=== PATIENT | male | born 1945 | race Caucasian/White ===

== ENCOUNTER 2024-08-17 16:52 | Inpatient (IN) | payer MEDICARE, OTHER ==
[~2024-08-17] VITALS: Ht 160 cm; Wt 70.7 kg
--- NOTE | 2024-08-17 16:59 | ED.PDOC ---
Altered Mental Status HPI Comments Patient is a 78-year-old male that was brought in by EMS from home with a chief complaint of ALOC x 1 hour. Per EMS, caregiver called due to patient being confused. Patient normally A/Ox4 and ambulatory. Upon arrival to ER, patient is awake and answering questions. Patient currently states that he has nausea and diarrhea. Patient answering questions appropriately and A/Ox4. Ram catheter in place draining to gravity. Denies chest pain and/or SOB. Chief Complaint: ALOC Time Seen by MD: 16:55 Reviewed Notes: Medications, Allergies Information Source: Patient Mode of Arrival: EMS Severity: Moderate Timing: Minutes Duration: Since onset Prehospital treatment: None Quality: Confusion Past Medical History PAST MEDICAL HISTORY: Pt Confused Surgical History: Pt Confused Family History Family History: Pt Confused Social History Smoker: Pt Confused Alcohol: Pt Confused Drugs: Pt Confused Constitutional: denies: chills, diaphoresis, fatigue, fever, malaise, sweats, weakness, others EENTM: denies: blurred vision, double vision, ear bleeding, ear discharge, ear drainage, ear pain, ear ringing, eye pain, eye redness, hearing loss, mouth pain, mouth swelling, nasal discharge, nose bleeding, nose congestion, nose pain, photophobia, tearing, throat pain, throat swelling, voice changes, others Respiratory: denies: cough, hemoptysis, orthopnea, SOB at rest, shortness of breath, SOB with excertion, stridor, wheezing, others Cardiovascular: denies: chest pain, dizzy spells, diaphoresis, Dyspnea on exertion, edema, irregular heart beat, left arm pain, lightheadedness, palpitations, PND, syncope, others Gastrointestinal: reports: diarrhea, nausea; denies: abdomen distended, abdominal pain, blood streaked bowels, constipated, dysphagia, difficulty swallowing, hematemesis, melena, poor appetite, poor fluid intake, rectal bleeding, rectal pain, vomiting, others Genitourinary: denies: burning, dysuria, flank pain, frequency, hematuria, incontinence, penile discharge, penile sore, pain, testicle pain, testicle swelling, urgency, others Neurological: denies: dizziness, fainting, headache, left sided numbness, left sided weakness, numbness, paresthesia, pre-existing deficit, right sided numbness, right sided weakness, seizure, speech problems, tingling, tremors, weakness, others Musculoskeletal: denies: back pain, gout, joint pain, joint swelling, muscle pain, muscle stiffness, neck pain, others Integumetry: denies: bruises, change in color, change in hair/nails, dryness, laceration, lesions, lumps, rash, wounds, others Allergic/Immunocompromised: denies: Difficulty Healing, Frequent Infections, Hives, Itching, others Hematologic/Lymphatic: denies: anemia, blood clots, easy bleeding, easy brui sing, swollen glands, others Endocrine: denies: excessive hunger, excessive sweating, excessive thirst, ex cessive urination, flushing, intolerance to cold, intolerance to heat, unexplained weight gain, unexplained weight loss, others Psychiatric: denies: anxiety, bipolar disorder, depression, hopeless, panic disorder, schizophrenia, sleepless, suicidal, others Unable to Obtain due to: Altered Mental Status All Other Systems: Reviewed and Negative Physical Exam General Appearance: No Apparent Distress, Normal HEENT: Normal ENT Inspection, Pharynx Normal, TMs Normal Neck: Full Range of Motion, Non-Tender, Normal, Normal Inspection Respiratory: Chest Non-Tender, Lungs Clear, No Accessory Muscle Use, No Respiratory Distress, Normal Breath Sounds Cardiovascular: No Edema, No JVD, No Murmur, No Gallop, Normal Peripheral Pulses, Regular Rate/Rhythm Breast Exam: Deferred Gastrointestinal: No Organomegaly, Non Tender, No Pulsatile Mass, Normal Bowel Sounds, Soft Genitalia: Deferred Pelvic: Deferred Rectal: Deferred Extremities: No calf tenderness, Normal capillary refill, Normal inspection, Normal range of motion, Non-tender, No pedal edema Musculoskeletal : Apperance: Normal Neurologic: Alert, builder beam II-XII nml as Tested, No Motor Deficits, Normal Affect, Normal Mood, No Sensory Deficits Cerebellar Function: Normal Reflexes: Normal Skin: Dry, Normal Color, Warm Lymphatic: No Adenopathy Was a procedure done? Was a procedure done?: No Differential Diagnosis (ALOC) Differential Diagnosis: Dehydration, Hypoglycemia, Sepsis, Seizure, CVA, ETOH Intoxication X-Ray, Labs, Meds, VS Vital Signs Date Time Temp Pulse Resp B/P (MAP) Pulse Ox O2 Delivery O2 Flow Rate FiO2 08/17/24 16:56 98.7 103 22 159/85 (109) 96 08/17/24 16:52 105 Lab Test 08/17/24 17:30 Range/Units White Blood Count 14.4 H 4.4-10.8 10^3/uL Red Blood Count 4.93 4.5-5.90 10^6/uL Hemoglobin 15.0 13.5-17.5 g/dL Hematocrit 44.9 41.0-53.0 % Mean Corpuscular Volume 91.2 80.0-100.0 fL Mean Corpuscular Hemoglobin 30.5 28.0-32.0 pg Mean Corpuscular Hemoglobin Concent 33.5 32.0-36.0 g/dL Red Cell Distribution Width 14.7 H 11.8-14.3 % Platelet Count 281 140-450 10^3/uL Mean Platelet Volume 7.8 6.9-10.8 fL Neutrophils (%) (Auto) 85.6 H 37.0-80.0 % Lymphocytes (%) (Auto) 4.5 L 10.0-50.0 % Monocytes (%) (Auto) 9.7 0.0-12.0 % Eosinophils (%) (Auto) 0.2 0.0-7.0 % Basophils (%) (Auto) 0.0 0.0-2.0 % Neutrophils # (Auto) 12.3 H 1.6-8.6 10 ^3/uL Lymphocytes # (Auto) 0.6 0.4-5.4 10 ^3/uL Monocytes # (Auto) 1.4 H 0-1.3 10 ^3/uL Eosinophils # (Auto) 0 0-0.8 10 ^3/uL Basophils # (Auto) 0 0-0.2 10 ^3/uL Nucleated Red Blood Cells 0.0 % Sodium Level Pending Potassium Level Pending Chloride Level Pending Carbon Dioxide Level Pending Anion Gap Pending Blood Urea Nitrogen Pending Creatinine Pending Glomerular Filtration Rate Calc Pending BUN/Creatinine Ratio Pending Serum Glucose Pending Calcium Level Pending Troponin I High Sensitivity Pending Time of 1ST Reevaluation: 17:25 Reevaluation 1ST: Unchanged Patient Education/Counseling: Diagnosis, Treatment, Prognosis, Other (PATIENT ALTERED) Family Education/Counseling: No Family Present Departure 1 Departure Time of Disposition: 18:17 (Patient presents with altered mental status. I ordered and reviewed CBC BMP troponin which were all benign. I reviewed the CT scan and chest x-ray both appear benign. We will admit patient for further workup of altered mental status.) Impression: Primary Impression: Metabolic encephalopathy Additional Impression: Generalized weakness Disposition: 09 ADMITTED INPATIENT Admit to: Med Surg Condition: Serious Critical Care Note Critical Care Time?: Yes Critical care comment: Altered mental status Authorized and Performed by: Alex Díaz MD Total critical care time: Approximately 39 minutes Due to a high probability of clinically significant, life threatening deterioration, the patient required my highest level of preparedness to intervene emergently and I personally spent this critical care time directly and personally managing the patient. This critical care time included obtaining a history; examining the patient; pulse oximetry; ordering and review of studies; arranging urgent treatment with development of a management plan; evaluation of patient's response to treatment; frequent reassessment; and, discussions with other providers. This critical care time was performed to assess and manage the high probability of imminent, life-threatening deterioration that could result in multi-organ failure. It was exclusive of separately billable procedures and treating other patients and teaching time. Please see my other sections and the rest of the note for further information on patient assessment and treatment. Stability Stability form required: No I personally scribed for ALEX DÍAZ MD ([email or web address]) on 08/17/24 at 16:59. Electronically submitted by Gabriele Perez ([email or web address]). I personally scribed for ALEX DÍAZ MD ([email or web address]) on 08/17/24 at 17:05. Electronically submitted by Gabriele Perez ([email or web address]). ALEX DÍAZ MD Aug 17, 2024 16:59
--- NOTE | 2024-08-17 17:36 | DVH ---
CHEST RADIOGRAPH Indication: WEAKNESS Technique: Single frontal view of the chest was obtained Comparison: None FINDINGS: Lines and Tubes: None. Partially visualized suggested right sided approach ventriculoperitoneal shun t catheter. Lungs: No focal consolidation. Pleura: No effusion. No pneumothorax. Cardiomediastinal contours: Unremarkable. [id number] atherosclerotic calcification and uncoili ng of the aorta. Bones: No acute osseous abnormality. IMPRESSION: No acute cardiopulmonary disease.
--- NOTE | 2024-08-17 17:49 | DVH ---
Procedure: CT HEAD WITHOUT CONTRAST Study Date and Requested Time: 08/17/2024 05:13 PM History: WEAKNESS Comparison: None Dose: CTDI: 65.47 mGy DLP: 1289.89 mGycm Technique: Multiplanar images obtained through the brain without intravenous contrast. Findings: There is moderate diffuse brain atrophy with moderate chronic small-vessel ischemic changes. Moderate prominence of the ventricles with the right parietal lobe approach ventriculoperitoneal shun t catheter terminating with the tip projected over the superior medial right lateral ventricle. The v isualized Extracranial part of the ventriculoperitoneal shunt appears intact. No hemorrhages, masses, mass effect, midline shift, herniation or cytotoxic edema following a large v ascular territory. No intra-axial or extra-axial fluid collections. The basal cisterns are patent. Nonspecific partially empty sella. The cerebellar tonsils are in normal position. The cerebellum is u nremarkable. There is bilateral lens replacement. Otherwise, orbits and globes are unremarkable. Mild mucoperiost eal thickening of the ethmoid air cells. Otherwise, the paranasal sinuses and mastoids are clear. Th ere are no worrisome calvarial lesions. Impression: No evidence of acute intracranial abnormality. Moderate hydrocephalus with a right parietal approach ventriculoperitoneal shunt catheter terminating over the superior medial right lateral ventricle
[2024-08-17 18:08] LABS: Basophils # (auto) 0 10 ^3/uL (0-0.2); Eosinophils # (auto) 0 10 ^3/uL (0-0.8); Eosinophils % (auto) 0.2 % (0.0-7.0); Hematocrit 44.9 % (41.0-53.0); Lymphocytes # (auto) 0.6 10 ^3/uL (0.4-5.4); Lymphocytes % (auto) 4.5 % (10.0-50.0); Mean Corpuscular Hemoglobin 30.5 pg (28.0-32.0); Mean Corpuscular Hgb Conc. 33.5 g/dL (32.0-36.0); Mean Corpuscular Volume 91.2 fL (80.0-100.0); Monocytes # (auto) 1.4 10 ^3/uL (0-1.3); Monocytes % (auto) 9.7 % (0.0-12.0); Neutrophils # (auto) 12.3 10 ^3/uL (1.6-8.6); Neutrophils % (auto) 85.6 % (37.0-80.0); Platelet Count (auto) 281 10^3/uL (140-450); Red Blood Cells 4.93 10^6/uL (4.5-5.90); Red Cell Distribution Width 14.7 % (11.8-14.3); White Blood Cell 14.4 10^3/uL (4.4-10.8)
[2024-08-17 18:18] LABS: Chloride 106 mmol/L (98-107); Potassium 4.5 mmol/L (3.5-5.1); Sodium 141 mmol/L (136-145)
[2024-08-17 18:19] LABS: Anion Gap 8 (5-15); Carbon Dioxide 27 mmol/L (20-31)
[2024-08-17 18:24] LABS: BUN/Creatinine Ratio 20.6 (10.0-20.0); Blood Urea Nitrogen 22 mg/dL (9-23); Glucose 107 mg/dL (74-106)
[2024-08-17] MEDS: SODIUM CHLORIDE 0.9% 1,000 ML IV ONE (21:57)
[2024-08-17 22:00] VITALS: PULSE 83; RESP 21
[2024-08-17] MEDS: ONDANSETRON HCL 4 MG/2 ML VIAL IV ONE (22:04)
[2024-08-17] MEDS ORDERED: ACETAMINOPHEN 325 MG TAB PO PRN (23:00)
[2024-08-17] MEDS ORDERED: MORPHINE SULFATE INJ 2 MG/ml SYRG IV PRN ×2 (23:00)
[2024-08-17] MEDS ORDERED: NITROGLYCERIN 0.4 MG SL TAB SL PRN (23:00)
[2024-08-17] MEDS ORDERED: DOCUSATE SOD 100 MG CAP PO PRN (23:00)
[2024-08-17] MEDS ORDERED: ONDANSETRON HCL 4 MG/2 ML VIAL IV PRN (23:00)
--- NOTE | 2024-08-17 23:35 | DVHHPRES ---
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 As per documentation from the ER and also from the caregiver patient was acting different today afternoon with altered level of consciousness. Patient is to be alert and oriented x4 but today in the afternoon patient was very confused and also patient had bowel incontinence which is unusual for the patient. Patient reported left flank mild tenderness. Patient's caregiver and patient denied any fever, chest pain, shortness of breath, dysuria, acute joint pain or swelling. Patient has Ram's catheter for last 3-4 months. After coming to the ER patient was more conversant and awake and on conversation with the video game script writer patient was alert oriented x4 but patient could not give a details about what happened in the afternoon tender period of confusion. Lab workup revealed leukocytosis WBC 14.4 with neutrophilic leukocytosis 85.6. Urinalysis revealed leukocyte 2+, nitrite 2+, WBC 28, urine RBC 6, bacteria few. CT scan of the head reveals-Moderate hydrocephalus with a right parietal approach ventriculoperitoneal shunt catheter terminating over the superior medial right lateral ventricle. There is moderate diffuse brain atrophy with moderate chronic small-vessel ischemic changes. CXR no acute cardiopulmonary disease. 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 Patient reports feeling better now Cardiovascular- deny acute chest pain or shortness of breath or cough or palpitation Respiratory- denies cough or short of breath or wheezing Gastrointestinal- denies any rectal bleeding, nausea or vomiting Musculoskeletal-denies acute joint swelling or tenderness or redness Neurological- denies acute dysarthria, dysphagia, change in vision Psychiatry- denies depression or SI or HI Skin- denies acute rash or purpura Allergies: Coded Allergies: NO KNOWN ALLERGIES (Unverified , 08/17/24) Medications Current Medications Medications Dose Ordered Sig/Dominic Route Start Time Stop Time Status Last Admin Dose Admin Sodium Chloride 10 ml Q8HR IV 08/18/24 06:00 Ondansetron HCl 4 mg Q4HP PRN IV 08/17/24 23:00 Docusate Sodium 100 mg BIDPRN PRN PO 08/17/24 23:00 Enoxaparin Sodium 40 mg DAILY SC 08/18/24 10:00 Acetaminophen 650 mg Q6HP PRN PO 08/17/24 23:00 Morphine Sulfate 2 mg Q4HPRN PRN IV 08/17/24 23:00 Nitroglycerin 0.4 mg Q5MINP PRN SL 08/17/24 23:00 Morphine Sulfate 2 mg Q30M PRN IV 08/17/24 23:00 Exam Vital Signs Vital Signs Date Time Temp Pulse Resp B/P (MAP) Pulse Ox O2 Delivery O2 Flow Rate FiO2 08/17/24 23:00 89 14 144/81 (102) 94 08/17/24 22:00 98.8 98.8 08/17/24 22:00 Nasal Cannula* 3 32 Exam General examination- awake, alert, oriented, conversant HEENT- PEERLA, no acute nasal discharge Cardiovascular- S1-S2 audible, rate and rhythm regular, no murmur Respiratory- CTAB, no wheeze or rhonchi Gastrointestinal-nontender, bowel sound+. Nondistended Musculoskeletal-no acute joint swelling or tenderness or redness# Lower extremity- no leg edema Neurological- cranial nerves intact, no acute dysarthria or dysphagia Psychiatry- denies depression or SI or HI Skin- fragile skin Labs/Xrays Labs Test 08/17/24 19:27 08/17/24 17:30 Range/Units Troponin I High Sensitivity 4 </=54 ng/L White Blood Count 14.4 H 4.4-10.8 10^3/uL Red Blood Count 4.93 4.5-5.90 10^6/uL Hemoglobin 15.0 13.5-17.5 g/dL Hematocrit 44.9 41.0-53.0 % Mean Corpuscular Volume 91.2 80.0-100.0 fL Mean Corpuscular Hemoglobin 30.5 28.0-32.0 pg Mean Corpuscular Hemoglobin Concent 33.5 32.0-36.0 g/dL Red Cell Distribution Width 14.7 H 11.8-14.3 % Platelet Count 281 140-450 10^3/uL Mean Platelet Volume 7.8 6.9-10.8 fL Neutrophils (%) (Auto) 85.6 H 37.0-80.0 % Lymphocytes (%) (Auto) 4.5 L 10.0-50.0 % Monocytes (%) (Auto) 9.7 0.0-12.0 % Eosinophils (%) (Auto) 0.2 0.0-7.0 % Basophils (%) (Auto) 0.0 0.0-2.0 % Neutrophils # (Auto) 12.3 H 1.6-8.6 10 ^3/uL Lymphocytes # (Auto) 0.6 0.4-5.4 10 ^3/uL Monocytes # (Auto) 1.4 H 0-1.3 10 ^3/uL Eosinophils # (Auto) 0 0-0.8 10 ^3/uL Basophils # (Auto) 0 0-0.2 10 ^3/uL Nucleated Red Blood Cells 0.0 % Sodium Level 141 136-145 mmol/L Potassium Level 4.5 3.5-5.1 mmol/L Chloride Level 106 98-107 mmol/L Carbon Dioxide Level 27 20-31 mmol/L Anion Gap 8 5-15 Blood Urea Nitrogen 22 9-23 mg/dL Creatinine 1.07 0.700-1.30 mg/dL Glomerular Filtration Rate Calc 71 >90 mL/min BUN/Creatinine Ratio 20.6 H 10.0-20.0 Serum Glucose 107 H 74-106 mg/dL Calcium Level 10.0 8.7-10.4 mg/dL Assessment/Plan Assessment/Plan #Metabolic encephalopathy likely due to UTI -after arrival patient is more alert and oriented x4 -leukocytosis WBC 14.4 -uterine analysis-nitrite 2+, leukocyte esterase 2+, WBC 28, RBC 6, bacteria few -continue ceftriaxone 1 g IV daily -pending urine and blood CS -continue IV fluid as prescribed -monitor CBC, CMP -altered mental status #Sepsis likely due to UTI --leukocytosis WBC 14.4 -tachycardia- pulse 105>103 -patient with altered mental status-no improved --uterine analysis-nitrite 2+, leukocyte esterase 2+, WBC 28, RBC 6, bacteria few --continue ceftriaxone 1 g IV daily -pending urine and blood CS -continue IV fluid as prescribed # 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 Dove, nursing staff, patient Total time spent on patient evaluation, chart review, assessment and plan, discussion discussion >30 minutes Plan discussed with: Patient Plan discussed with: Patient, Other (RN, MEAL ROOM HAND) My Orders Orders - JO ANN GASTELUM RESIDENT Procedure Category Date Status Time Admit ADMIT 08/17/24 Transmitted 22:56 Code Status CODE 08/17/24 Transmitted 22:56 Sodium Chloride Lock PHA 08/18/24 In Process (Saline Lock Ns) 06:00 Ondansetron Hcl PHA 08/17/24 In Process (Zofran) 23:00 Docusate Sodium PHA 08/17/24 In Process Capsule (Colace 23:00 Enoxaparin Sodium PHA 08/18/24 In Process (Lovenox) 10:00 Fall Risk Precautions BECKY 08/17/[address] 22:56 Complete Blood Count LAB 08/18/24 Verified 04:00 Comprehensive LAB 08/18/24 Verified Metabolic Panel 04:00 Cardiac DIET 08/18/24 Transmitted Diet-2gna,Lofat,Lochol Breakfast Acetaminophen Tablet PHA 08/17/24 In Process (Tylenol Tablet) 23:00 Morphine Sulfate PHA 08/17/24 In Process Injection 23:00 Nitroglycerin PHA 08/17/24 In Process Sublingual (Ntrostat 23:00 Morphine Sulfate PHA 08/17/24 In Process Injection 23:00 Oxygen By Nasal RT 08/17/24 Transmitted Cannula 22:56 Stat Ekg For Chest BECKY 08/17/24 In Process Pain 22:56 Notify Of Changes BECKY 08/17/24 In Process From Base 22:[address] [facility] 08/17/24 In Process 24 Hours 22:[address] [facility] 08/17/24 In Process Protocol 22:[address] [facility] 08/17/24 In Process Every Shift 22:56 Date of Service: Aug 17, 2024 Billing Provider: JORGE DOVE MD Common Visit Codes: 83268-OGEKRTZ INP/OBS CARE (HIGH) Secondary Visit Codes: 03515-[id number] CARE PLAN 30 MINUTES JO ANN GASTELUM RESIDENT Aug 17, 2024 23:35 JORGE DOVE MD Aug 18, 2024 09:17
[2024-08-18 01:01] LABS: Urine Amorphous Crystal FEW /hpf (None Seen); Urine Bacteria FEW /hpf (None Seen); Urine Blood 2+ /uL (Negative); Urine Clarity Clear (Clear); Urine Color Light-Yellow (Yellow); Urine Protein, UAD Negative (Negative); Urine Specific Gravity 1.012 (1.001-1.035); Urine Urobilinogen Normal (Negative); Urine WBC 28 /hpf (0 - 3); Urine WBC Clumps PRESENT /hpf (None Seen); Urine pH 5.5 (5.0-9.0)
[2024-08-18] MEDS ORDERED: hydrALAZINE HCL 20 MG/ML VL IV PRN (02:15)
[2024-08-18] MEDS: cefTRIAXone 1GM/50ML D5W 50 ML IV ONE (02:23)
[2024-08-18] MEDS: SODIUM CHLORIDE 0.9% 1,000 ML IV SCH (02:38)
[2024-08-18] MEDS: SODIUM CHLOR 0.9% PF (SALINE LOCK) 10ML VIAL/SYR IV SCH (06:16)
[2024-08-18 07:20] LABS: Basophils # (auto) 0 10 ^3/uL (0-0.2); Basophils % (auto) 0.2 % (0.0-2.0); Eosinophils # (auto) 0.1 10 ^3/uL (0-0.8); Eosinophils % (auto) 1.4 % (0.0-7.0); Hematocrit 41.4 % (41.0-53.0); Hemoglobin 14.1 g/dL (13.5-17.5); Lymphocytes # (auto) 1.2 10 ^3/uL (0.4-5.4); Mean Corpuscular Hgb Conc. 34.1 g/dL (32.0-36.0); Mean Corpuscular Volume 91.1 fL (80.0-100.0); Monocytes # (auto) 1.6 10 ^3/uL (0-1.3); Monocytes % (auto) 16.8 % (0.0-12.0); Neutrophils # (auto) 6.6 10 ^3/uL (1.6-8.6); Neutrophils % (auto) 68.6 % (37.0-80.0); Platelet Count (auto) 240 10^3/uL (140-450); Red Blood Cells 4.55 10^6/uL (4.5-5.90); Red Cell Distribution Width 14.9 % (11.8-14.3); White Blood Cell 9.6 10^3/uL (4.4-10.8)
[2024-08-18 07:27] LABS: Alanine Aminotransferase 11 U/L (7-40); Albumin 3.8 g/dL (3.2-4.8); Alkaline Phosphatase 74 U/L (46-116); Anion Gap 7 (5-15); Aspartate Aminotransferase 16 U/L (13-40); BUN/Creatinine Ratio 13.1 (10.0-20.0); Bilirubin, Total 0.5 mg/dL (0.2-1.0); Blood Urea Nitrogen 13 mg/dL (9-23); Calcium 9.4 mg/dL (8.7-10.4); Carbon Dioxide 26 mmol/L (20-31); Chloride 108 mmol/L (98-107); Glucose 101 mg/dL (74-106); Potassium 4.2 mmol/L (3.5-5.1); Sodium 141 mmol/L (136-145); Total Protein 6.5 g/dL (5.7-8.2)
[2024-08-18 08:15] VITALS: PULSE 63; RESP 16; O2SAT 92
[2024-08-18 08:21] LABS: Triglycerides 97 mg/dL (< 150)
[2024-08-18 08:22] LABS: LDL Cholesterol 114 mg/dL (< 100)
[2024-08-18 08:23] LABS: HDL Cholesterol 44 mg/dL (40-59)
[2024-08-18 08:24] LABS: Cholesterol 182 mg/dL (< 200)
[2024-08-18 08:35] LABS: Folate (Folic Acid) 16.72 ng/mL (>5.38)
--- NOTE | 2024-08-18 08:53 | DVH ---
CAROTID ARTERIAL DOPPLER CLINICAL HISTORY: Presyncope TECHNIQUE: Doppler study of bilateral carotid/vertebral arteries were performed. Comparison: None FINDINGS: The bilateral common carotid, external and internal carotid arteries appear patent without hemodynami lary significant stenosis. There is no significant flow limiting plaque formation identified.The sp ectral wave forms and peak systolic velocities are within normal limits. Antegrade flow is present within the vertebral arteries with appropriate velocities and waveforms. Right ICA/CCA PSV ratio = 1.1. Left ICA/CCA PSV ratio = 1.0 . IMPRESSION: 1. No hemodynamically significant stenosis within the cervical carotid arteries. HS:Y
[2024-08-18] MEDS: amLODIPine BESYLATE 5 MG TAB PO SCH (13:01)
[2024-08-18] MEDS: ERGOCALCIFEROL 50,000 UNIT(1.25MG) CAP PO SCH (13:01)
[2024-08-18] MEDS: ENOXAPARIN SOD 40 MG/0.4 ML SYRINGE SC SCH (13:02)
[2024-08-18 14:12] LABS: COVID19 ANTIGEN SOFIA FIA NEGATIVE (NEGATIVE); Rapid Influenza A Negative (Negative); Rapid Influenza B Negative (Negative)
--- NOTE | 2024-08-18 14:25 | ECG ---
[facility] Test Date: 2024-08-17 Test Time: 16:51:25 Pat Name: RAVI CARDENAS Department: ER Room: 0248T Gender: M [employer] Insulator: IC : 1945 Requested By: ALEX DÍAZ Order Number: [id number] Reading MD: Donis Cartwright Measurements Intervals [place] Rate: 105 P: 48 NV: 191 QRS: 202 QRSD: 92 T: 3 QT: 318 QTc: 421 Interpretive Statements Sinus tachycardia Probable left atrial enlargement Abnormal R-wave progression, late transition Inferior infarct, old Baseline wander in lead(s) I,III,aVL,V2 Electronically Signed On 08-20-2024 17:28:05 PST by Donis Cartwright Please click the below link to view image of tracing.
--- NOTE | 2024-08-18 14:47 | DVHSR ---
APPROVED REPORT EXAM: Two-dimensional and M-mode echocardiogram with Doppler and color Doppler. Blood Pressure: 143/70 mmHg INDICATION Presyncope RISK FACTORS Height: 5' 7", Weight: 180 DIMENSIONS LVDd4.0 (3.8-5.7cm)LA (2D)4.2 (1.9-4.0cm)Aortic Root3.1 (2.0-3.7cm) LVDs2.9 (2.5-4.0cm)LA (MM) (1.9-4.0cm)Aortic Cusp Exc1.9 (1.5-2.0cm) EF (%) 55.0 (55-70%)Rt. Atrium3.9 (1.9-4.0cm)Asc. Aorta cm IVSd1.2 (0.7-1.1cm)RV (D) (1.8-2.4cm) PWd1.1 (0.7-1.1cm) Mitral Valve MitralMitral Stenosis E wave0.60m/sMV Mean GR.mmHg A wave0.90m/sMV Peak GR.mmHg E/A ratio0.72D MVAcm2 Aortic Valve Aortic ValveAortic Stenosis V10.80m/Charmaine Mean GR.5mmHg V21.30m/Charmaine Peak GR.8mmHg LVOT Diameter2.2 (1.8-2.4cm)Doppler AVA2.34cm2 Pulmonic Valve V20.50m/s Tricuspid Valve TR Velocity2.40m/s [id number] Conclusion Normal left ventricular size and dimension. Normal left ventricular systolic function estimated ejec tion fraction 55%. There is a grade 1 diastolic dysfunction. Normal right ventricular size and dimension. Normal right ventricular systolic function. Normal biatrial size and dimension. Normal aortic valve structure and function. Normal mitral valve structure and. Normal tricuspid valve structure function. The pulmonary valve is grossly normal. No pericardial effusion.
--- NOTE | 2024-08-18 16:00 | DVHPNRES ---
Progress Note Date Seen: Aug 18, 2024 Resident Creating Document: EUGENIO MCFADDEN RESIDENT Medical Necessity Reason Pt with a Central, PICC or Fol: Yes The following are medically ne: Ram Catheter Subjective Review of Systems RAVI CARDENAS is a 78 years old male with a PMH of prostate carcinoma, HTN, hydrocephalus with a TAX EVALUATOR shunt presented to the ED with the chief complaints of altered level of consciousness on the day of admission. Patient is poor historian but now he is alert, as per caregiver patient was acting different yesterday afternoon with altered level of consciousness. Patient is to be alert and oriented x4 but yesterday in the afternoon patient was very confused and also patient had bowel incontinence which is unusual for the patient. Patient reported left flank mild tenderness. Patient's caregiver and patient denied any fever, chest pain, shortness of breath, dysuria, acute joint pain or swelling. Patient has Ram's catheter for last 3-4 months. After coming to the ER patient was more conversant and awake and on conversation with the caption writer patient was alert oriented x4 but patient could not give a details about what happened in the afternoon. PMH: Personal carcinoma, HTN, hydrocephalus status post we patient Surgical history: TAX EVALUATOR shunt Family history: lives at home. Denies smoking, alcohol and other drug abuse Allergies: No known allergies Patient seen and examined at the bedside. Patient is alert and more awake, reported improvement in his condition. Head CT showed no acute intracranial abnormalities. Urinalysis was positive for UTI, ordered urine cultures, given ceftriaxone. Due to dizziness carotid Doppler was ordered, no hemodynamic significant stenosis. Patient reports: Feels better Objective vital signs Vital Sign Date Time Temp Pulse Resp B/P (MAP) Pulse Ox O2 Delivery O2 Flow Rate FiO2 08/18/24 13:01 135/72 08/18/24 12:00 64 08/18/24 09:00 13 91 08/18/24 08:15 Nasal Cannula* 2 28 08/17/24 22:00 98.8 98.8 Total Intake and Output 08/17/24 08/17/24 08/18/24 15:00 23:00 07:00 Intake Total 1000 ml 500 ml Balance 1000 ml 500 ml medications Current Medications Medications Dose Ordered Sig/Dominic Route Start Time Stop Time Status Last Admin Dose Admin Sodium Chloride 10 ml Q8HR IV 08/18/24 06:00 08/18/24 06:16 10 ML Ondansetron HCl 4 mg Q4HP PRN IV 08/17/24 23:00 Docusate Sodium 100 mg BIDPRN PRN PO 08/17/24 23:00 Enoxaparin Sodium 40 mg DAILY SC 08/18/24 10:00 08/18/24 13:02 40 MG Acetaminophen 650 mg Q6HP PRN PO 08/17/24 23:00 Morphine Sulfate 2 mg Q4HPRN PRN IV 08/17/24 23:00 Nitroglycerin 0.4 mg Q5MINP PRN SL 08/17/24 23:00 Morphine Sulfate 2 mg Q30M PRN IV 08/17/24 23:00 Ceftriaxone Sodium 50 ml @ 100 mls/hr DAILY@0200 IV 08/19/24 02:00 Sodium Chloride 1,000 ml @ 100 mls/hr Q10H IV 08/18/24 02:15 08/18/24 13:03 100 MLS/HR Hydralazine HCl 10 mg Q6HP PRN IV 08/18/24 02:15 Amlodipine Besylate 5 mg DAILY PO 08/18/24 10:00 08/18/24 13:01 5 MG Ergocalciferol 50,000 unit Q7D PO 08/18/24 09:30 08/18/24 13:01 50,000 UNIT Examination Pt is lying on bed General Appearance: Alert, Oriented X3, Cooperative, Not in acute distress HEENT: Atraumatic, Mucous membranes moist/pink Respiratory: Clear to auscultation, Normal air movement, No added sounds Cardiovascular: Regular rate, Normal S1, Normal S2, No murmurs Abdominal: Active bowel sounds, Soft, no distention, no tenderness Extremities: No edema, Normal pulses, No tenderness/swelling Skin: No Significant rash, except past surgical scars : Ram in place draining urine Neuro: Normal speech, sensorimotor deficits none Psych/Mental Status: Mental status NL, Mood NL Nurse was there as reedne during examination laboratory and microbiology Laboratory Tests 08/18/24 06:54 Test 08/18/24 06:54 Range/Units Serum Glucose 101 74-106 mg/dL Labs and/or images reviewed: Labs reviewed by me, Image(s) reviewed by me Problem List/Assessment/Plan Problem List/Assessment/Plan # Acute Metabolic encephalopathy likely due to UTI # ? Sepsis likely due to UTI # Acute complicated UTI # UTI likely due to indwelling Ram catheter - evident on urinalysis - ordered urine bacterial & blood culture - currently giving Rocephin - monitor lab - continue IV fluid as prescribed # TAX EVALUATOR shunt due to hydrocephalus -CT scan of the brain revealed--Moderate hydrocephalus with a right parietal approach ventriculoperitoneal shunt catheter terminating over the superior medial right lateral ventricle. There is moderate diffuse brain atrophy with moderate chronic small-vessel ischemic changes # carcinoma of the prostate -plan is to resume home medication # chronic retention of urine likely due to carcinoma of the prostate -on Ram's catheter # hypertension, uncontrolled -hydralazine 10 mg iv q.6h -monitor BP # Vit D deficiency - Repleting # B12 deficiency Repleting SCDs for now No GI be PPX Cardiac diet Reconciled home meds Goals of care discussed with the patient for more than 27 minutes: Full code status Case management discussed with the Dr Valles, patient and nurse Plan discussed with: Patient My Orders My Orders Orders - EUGENIO MCFADDEN RESIDENT Procedure Category Date Status Time Transfer Orders XFER 08/18/24 Transmitted 11:38 Discontinue Tele BECKY 08/18/24 In Process 11:38 Date of Service: Aug 18, 2024 Billing Provider: MEL VALLES MD Common Visit Codes: [id number] INP/OBS CARE(HIGH) Coding Comment Comment Attending Attestation I saw and evaluated the patient. I reviewed the residents note and agree with findings and plan as documented in the residents note except as documented below. HTN in elderly, will start amlodipine, avoid IV antihypertensive, will allow elevated BP and slowly decrease it with dominic PO meds only EUGENIO MCFADDEN RESIDENT Aug 18, 2024 16:00 MEL VALLES MD Aug 18, 2024 20:52
[2024-08-18] MEDS ORDERED: ERGOCALCIFEROL 50,000 UNIT(1.25MG) CAP PO SCH (16:15)
[2024-08-18] MEDS: CYANOCOBALAMIN (B-12) 1000 MCG/1 ML VIAL IM ONE (18:03)
[2024-08-18 20:00] VITALS: PULSE 61; RESP 18; O2SAT 94
[2024-08-18 23:00] VITALS: BP 169/72; PULSE 62; RESP 21; TEMP 98.1; O2SAT 95
[2024-08-19] VITALS (8 sets, daily range): BP systolic 134–144; BP diastolic 69–80; PULSE 72–78; RESP 16–20; TEMP 36.2; O2SAT 93–96
[2024-08-19] MEDS: cefTRIAXone 1GM/50ML D5W 50 ML IV SCH (01:52)
[2024-08-19] MEDS ORDERED: CEFP200T15 PO (14:19)
[2024-08-19] MEDS ORDERED: AML5T PO (14:19)
--- NOTE | 2024-08-19 16:58 | DVHDSRES ---
Discharge Summary Date of Admission Resident Creating Document: EUGENIO MCFADDEN RESIDENT Aug 17, 2024 at 22:58 Date of Discharge: Aug 19, 2024 Admitting Diagnosis ALOC Labs/Diagnostic Data: Laboratory Results Test 08/18/24 13:44 08/18/24 11:55 08/18/24 06:54 08/18/24 00:15 Influenza Type A Antigen Negative (Negative) Influenza Type B Antigen Negative (Negative) SARS-CoV-2 Antigen (Rapid) Negative (NEGATIVE) Troponin I High Sensitivity 5 ng/L (</=54) White Blood Count 9.6 10^3/uL (4.4-10.8) Red Blood Count 4.55 10^6/uL (4.5-5.90) Hemoglobin 14.1 g/dL (13.5-17.5) Hematocrit 41.4 % (41.0-53.0) Mean Corpuscular Volume 91.1 fL (80.0-100.0) Mean Corpuscular Hemoglobin 31.0 pg (28.0-32.0) Mean Corpuscular Hemoglobin Concent 34.1 g/dL (32.0-36.0) Red Cell Distribution Width 14.9 % (11.8-14.3) Platelet Count 240 10^3/uL (140-450) Mean Platelet Volume 7.6 fL (6.9-10.8) Neutrophils (%) (Auto) 68.6 % (37.0-80.0) Lymphocytes (%) (Auto) 13.0 % (10.0-50.0) Monocytes (%) (Auto) 16.8 % (0.0-12.0) Eosinophils (%) (Auto) 1.4 % (0.0-7.0) Basophils (%) (Auto) 0.2 % (0.0-2.0) Neutrophils # (Auto) 6.6 10 ^3/uL (1.6-8.6) Lymphocytes # (Auto) 1.2 10 ^3/uL (0.4-5.4) Monocytes # (Auto) 1.6 10 ^3/uL (0-1.3) Eosinophils # (Auto) 0.1 10 ^3/uL (0-0.8) Basophils # (Auto) 0 10 ^3/uL (0-0.2) Nucleated Red Blood Cells 0.0 % Sodium Level 141 mmol/L (136-145) Potassium Level 4.2 mmol/L (3.5-5.1) Chloride Level 108 mmol/L (98-107) Carbon Dioxide Level 26 mmol/L (20-31) Anion Gap 7 (5-15) Blood Urea Nitrogen 13 mg/dL (9-23) Creatinine 0.99 mg/dL (0.700-1.30) Glomerular Filtration Rate Calc 78 mL/min (>90) BUN/Creatinine Ratio 13.1 (10.0-20.0) Serum Glucose 101 mg/dL (74-106) Hemoglobin A1c 5.8 % A1C (<5.7) Calcium Level 9.4 mg/dL (8.7-10.4) Magnesium Level 2.0 mg/dL (1.6-2.6) Total Bilirubin 0.5 mg/dL (0.2-1.0) Aspartate Amino Transferase (AST) 16 U/L (13-40) Alanine Aminotransferase (ALT) 11 U/L (7-40) Alkaline Phosphatase 74 U/L (46-116) B-Type Natriuretic Peptide 21.07 pg/mL (0-100) Total Protein 6.5 g/dL (5.7-8.2) Albumin 3.8 g/dL (3.2-4.8) Triglycerides Level 97 mg/dL (< 150) Cholesterol Level 182 mg/dL (< 200) LDL Cholesterol 114 mg/dL (< 100) HDL Cholesterol 44 mg/dL (40-59) Vitamin B12 Level 332 pg/mL (211-911) Vitamin D 25-Hydroxy 15.6 ng/mL (30.0-100) Folic Acid 16.72 ng/mL (>5.38) Thyroid Stimulating Hormone (TSH) 0.37 uIU/mL (0.55-4.78) Urine Color Light-yellow (Yellow) Urine Clarity Clear (Clear) Urine pH 5.5 (5.0-9.0) Urine Specific Dalton 1.012 (1.001-1.035) Urine Protein Negative (Negative) Urine Ketones Negative (Negative) Urine Blood 2+ /uL (Negative) Urine Nitrite 2+ (Negative) Urine Bilirubin Negative (Negative) Urine Urobilinogen Normal mg/dL (Negative) Urine Leukocyte Esterase 2+ /uL (Negative) Urine RBC 6 /hpf (0 - 3) Urine WBC 28 /hpf (0 - 3) Urine WBC Clumps Present /hpf (None Seen) Urine Squamous Epithelial Cells None seen /hpf (<5) Urine Amorphous Crystals Few /hpf (None Seen) Urine Bacteria Few /hpf (None Seen) Urine Glucose Normal mg/dL (Normal) Other Laboratory Tests 08/18/24 06:54 Brief Hx & Hospital Course: RAVI CARDENAS is a 78 years old male with a PMH of prostate carcinoma, HTN, hydrocephalus with a FLOTATION TENDER shunt presented to the ED with the chief complaints of altered level of consciousness on the day of admission. Patient is poor historian but now he is alert, as per caregiver patient was acting different yesterday afternoon with altered level of consciousness. Patient is to be alert and oriented x4 but yesterday in the afternoon patient was very confused and also patient had bowel incontinence which is unusual for the patient. Patient reported left flank mild tenderness. Patient required admission for ALOC and possible sepsis due to UTI, Head CT showed no acute intracranial changes. Urinalysis was positive for UTI, ordered urine cultures, given ceftriaxone and IVF. Due to dizziness carotid Doppler was ordered, no hemodynamic significant stenosis. Changed leone. Patient condition was improved, alert and oriented x4, hemodynamically stable stable, in condition to be discharge home with optimal treatment. Patient was advised about diet and exercise and to followuo with PCP Pt is lying on bed General Appearance: Alert, Oriented X3, Cooperative, Not in acute distress HEENT: Atraumatic, Mucous membranes moist/pink Respiratory: Clear to auscultation, Normal air movement, No added sounds Cardiovascular: Regular rate, Normal S1, Normal S2, No murmurs Abdominal: Active bowel sounds, Soft, no distention, no tenderness Extremities: No edema, Normal pulses, No tenderness/swelling Skin: No Significant rash, except past surgical scars : Leone in place draining urine Neuro: Normal speech, sensorimotor deficits none Psych/Mental Status: Mental status NL, Mood NL Nurse was there as soniaerone during examination Operations or Procedures Carotid Doppler:IMPRESSION: 1. No hemodynamically significant stenosis within the cervical carotid arteries. CT HEAD WITHOUT CONTRAST Impression: No evidence of acute intracranial abnormality. Moderate hydrocephalus with a right parietal approach ventriculoperitoneal shunt catheter terminating over the superior medial right lateral ventricle Echocardiogram Normal left ventricular size and dimension. Normal left ventricular systolic function estimated ejection fraction 55%. There is a grade 1 diastolic dysfunction. Normal right ventricular size and dimension. Normal right ventricular systolic function. Condition at Discharge: Stable Final Diagnosis/Problems List # Acute Metabolic encephalopathy likely due to UTI # ? Sepsis likely due to UTI # Acute complicated UTI # UTI likely due to indwelling Leone catheter # Moderate hydrocephalus with S/P FLOTATION TENDER shunt # carcinoma of the prostate # chronic retention of urine likely due to carcinoma of the prostate # hypertension, uncontrolled # Vit D deficiency # B12 deficiency Discharge Disposition: Home Discharge Instruct/Medications Diet: Consistent carbohydrate, Cardiac 2g Na,low cholest Activity: No Restrictions, As Tolerated Follow Up/Referral: PCP Medications: Per EMR Discharge Statement: "Patient was advised to return to the ER or call 911 if any headaches, dizziness, shortness of breath, chest pain, abdominal pain, bleeding, fevers, or worsening of medical condition. Patient was counseled about treatment plan, medications, possible side effects, patientverbalized understanding. All questions were answered to the best of my ability. This discharge took greater then 30 minutes in planning, reviewing documentation, counseling the patient, and discussing with other team members." ASSESSMENT ASSESSMENT Assessment Acute metabolic encephalopathy likely due to UTI Complicated UTI Date of Service: Aug 19, 2024 Billing Provider: MEL COLLINS MD Common Visit Codes: 13631-LYK/[id number] DISCH DAY >30min Coding Comment Comment Attending Attestation I saw and evaluated the patient. I reviewed the residents note and agree with findings and plan as documented in the residents note except as documented below. EUGENIO MCFADDEN RESIDENT Aug 19, 2024 16:58 MEL COLLINS MD Aug 19, 2024 21:37
== END 2024-08-19 14:40 | disposition home health service (06) | DRG 698 ==
LOC: EDBD 16:52 → ER 16:52 → TELE 22:58 → TELE-EAST 08-18 22:47
PROVIDERS: ADMIT Student in an Organized Health Care Education/Training Program; ATTEND Student in an Organized Health Care Education/Training Program
DX: T83.511A Infection and inflammatory reaction due to indwelling urethral catheter, initial encounter (principal); A41.9 Sepsis, unspecified organism; G93.41 Metabolic encephalopathy; G91.9 Hydrocephalus, unspecified; N39.0 Urinary tract infection, site not specified; Z20.822 Contact with and (suspected) exposure to COVID-19; I10 Essential (primary) hypertension; R33.9 Retention of urine, unspecified; E55.9 Vitamin D deficiency, unspecified; E53.8 Deficiency of other specified B group vitamins; Z85.46 Personal history of malignant neoplasm of prostate; Z98.2 Presence of cerebrospinal fluid drainage device
CPT/HCPCS: 36415; 70450; 71045; 80048; 80053; 80061; 81001; 82306; 82607; 82746; 83036; 83735; 83880; 84443; 84484; 85025; 87040; 87086; 87088; 87186; 87426; 87804; 93005; 93306; 93886; 97110; 97116; 97163; 97530; 99291; G0378; J2405

== ENCOUNTER → 2024-10-05 | Outpatient (CLI) | payer MEDICARE ==
[~2024-10-05] MED LIST: AML5T PO; CEFP200T15 PO
== END | disposition home or self-care (01) ==
LOC: LAB 15:48
PROVIDERS: ATTEND Internal Medicine
DX: N40.0 Benign prostatic hyperplasia without lower urinary tract symptoms (principal)
CPT/HCPCS: 84153

== ENCOUNTER → 2024-10-13 | Outpatient (CLI) | payer MEDICARE | END | disposition home or self-care (01) | LOC: LAB 13:52 | PROVIDERS: ATTEND Internal Medicine | DX: T83.511A Infection and inflammatory reaction due to indwelling urethral catheter, initial encounter (principal); Y84.8 Other medical procedures as the cause of abnormal reaction of the patient, or of later complication, without mention of misadventure at the time of the procedure; Y92.89 Other specified places as the place of occurrence of the external cause | CPT/HCPCS: 87086; 87088; 87186 ==

== ENCOUNTER 2024-10-19 00:37 | Inpatient (IN) | payer MEDICARE ==
[2024-10-19] VITALS (10 sets, daily range): BP systolic 108–148; BP diastolic 56–81; PULSE 82–106; RESP 15–22; TEMP 97.7–98.1; O2SAT 92–97
[~2024-10-19] VITALS: Ht 162.6 cm; Wt 68.2 kg
--- NOTE | 2024-10-19 00:53 | ED.PDOC ---
Altered Mental Status HPI Comments HPI: Poor Historian. Caregiver saw the patient today and was concerned that he is somewhat altered x2 which is not his baseline. She said that this happens when he usually gets a UTI. He is currently on antibiotics for UTI. Same thing happened few weeks ago as well. Patient denies any pain anywhere in his body. He is in no distress. Denies any specific symptoms. Patient Ram catheter was replaced two weeks ago. Patient denies any fall or trauma or injury. Patient received Zofran prior to arrival. Patient received DuoNeb prior to arrival. Vitals on scene: blood pressure of 158/84, heart rate of 64, respiratory rate of 22, SpO2 88%RA, temperature of 98.4F Vitals upon arrival to ED: blood pressure of 172/84, heart rate of 95, respiratory rate of 20, SpO2 96%RA, temperature of 98.4F Upon reassessment with the patient went to bed, the nurse notified me that his pulse ox is in the mid 80s and required supplemental oxygen. 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 EARS: Denies acute: tinnitus, hearing loss, ear discharge, ear pain, THROAT: Denies acute: sore throat, swelling, difficulty swallowing , pain with swallowing, change in voice. NECK: Denies acute: neck pain, neck swelling, stiff neck. HEART: Denies acute : chest pain, palpitations, LUNGS: Denies acute: SOB, wheezing, cough, hemoptysis ABDOMEN: Denies acute: abdominal pain, Nausea, Vomiting, diarrhea, melena , hematemesis, hematochezia SKIN: Denies acute: rash, redness, lesions, itchiness. EXTREMITIES: Denies acute: calf pain, numbness, tingling, weakness, denies pain in extremity. Denies acute: Low back pain. Neuro: Denies acute: focal neurological deficit, motor or sensory focal neurological deficit, tremors, seizure like activity, confusion, dizziness, loss of bowel or bladder function, cauda equina like symptoms. : Denies acute: dysuria, hematuria, flank pain, increase in urinary frequency. PSYCH: Denies acute: hallucination, suicidal ideation, homicidal ideation. PHYSICAL EXAM: General: no acute distress, awake and alert. Head: normocephalic, atraumatic. Neck: supple, trachea is midline, no swelling. Throat: Normal phonation. Eyes:, no erythema, no purulent discharge, no proptosis, no icterus. Heart: regular rate, regular rhythm, no significant murmur appreciated. Lungs: no apparent respiratory distress, Able to speak in full sentences. No wheezing, no rhonchi, no crackles. No stridors Clear to auscultation bilaterally. Abdomen: non tender to palpation, non distended, soft, no guarding, no rebound, + bowel sounds. Indwelling Ram catheter. Neuro: Awake, Alert, oriented to name, self, situation, follows commands GCS=15. Speech is normal. Skin: no petechia, no purpura, no cyanosis, slightly-pale, not jaundice. Lower extremities: --no - Pitting edema no deformity, no focal swelling, no calf TTP. Makes eye contact. moves all four extremities. Face: no apparent facial droop. Time Seen by MD: 00:45 Reviewed Notes: Nurses Notes, Cage Maker Notes, Medications, Allergies Allergies: Coded Allergies: NO KNOWN ALLERGIES (Unverified , 08/17/24) Home Meds Active Scripts Amlodipine Besylate (NORVASC TABLET) 5 Mg Tb, 5 MG PO DAILY for 30 Days, #30 TAB Prov:MEL COLLINS MD 08/19/24 Reported Medications Fesoterodine Fumarate (Toviaz) 4 Mg Tab, 4 MG PO DAILY, TAB 10/19/24 Benazepril HCl (Benazepril Hydrochloride) 40 Mg Tab, 40 MG PO DAILY, TAB 10/19/24 Pantoprazole Sodium Sesquihydr (Protonix) 40 Mg Tab, 40 MG PO QAM, #30 TAB 10/19/24 Mirtazapine (REMERON) 30 Mg Tab, 15 MG PO DAILY, TAB 10/19/24 Trazodone Hcl (Trazodone Hcl) 50 Mg Tab, 50 MG PO HS, TAB 10/19/24 Tamsulosin Hcl (Tamsulosin Hcl) 0.4 Mg Cap, 0.4 MG PO DAILY, CAP 10/19/24 Information Source: Patient, Emergency Med Personnel Mode of Arrival: EMS Past Medical History PAST MEDICAL HISTORY: Cancer (carcinoma of the prostate), HTN, UTI'S Past Medical History (Other): acute metabolic encephalopathy, hydrocephalus with S/P 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 Was a procedure done?: No Differential Diagnosis (ALOC) Differential Diagnosis: Other (DDX include CVA, TGA, cerebellar ischemia/infarct, carotid stenosis, Intracranial mass/infection/bleed, encephalopathy, electrolyte abnormality, thyroid disease, hydrocephalus, hypoglycemia, drug toxicity, cardiac arrhythmia, seizure, infection in the elderly, Hyperammonemia., kidney failure., sepsis.) X-Ray, Labs, Meds, VS Vital Signs Date Time Temp Pulse Resp B/P (MAP) Pulse Ox O2 Delivery O2 Flow Rate FiO2 10/19/24 04:00 101 10/19/24 04:00 101 15 117/65 (82) 93 10/19/24 01:53 18 96 Simple Mask* 6 50 10/19/24 01:44 94 10/19/24 01:18 98 17 94 Nasal Cannula* 6 44 10/19/24 01:18 98.5 98 17 155/72 (99) 94 98.5 10/19/24 01:00 Nasal Cannula* 6 44 10/19/24 00:52 95 10/19/24 00:47 95 10/19/24 00:47 98.4 98 20 172/84 (113) 96 Lab Test 10/19/24 04:26 10/19/24 02:37 10/19/24 02:20 10/19/24 01:41 Range/Units Troponin I High Sensitivity 6 5 </=54 ng/L Blood Gas Specimen Type Arterial Blood Gas Sample Site Left radial Blood Gas Patient Temperature 37.0 Arterial Blood Date Drawn [id number] Arterial Blood pH 7.394 7.350-7.450 Arterial Blood Partial Pressure CO2 32.3 L 35.0-48.0 mmHg Arterial Blood Partial Pressure O2 76.7 L 83.0-108.0 mmHg Arterial Blood HCO3 19.3 L 21.0-28.0 mmol/L Arterial Blood Oxygen Saturation 94.9 94.0-98.0 % Arterial Blood Base Excess -4.5 L -2.0-3.0 mmol/L Arterial Blood Oxyhemoglobin 93.6 L 94.0-98.0 % Arterial Blood Carboxyhemoglobin 0.8 0.5-1.5 % Arterial Blood Methemoglobin 0.6 0.0-1.5 % Deshawn Test Yes Blood Gas Total Hemoglobin 15.10 13.5-17.5 g/dL Blood Gas Liter Flow 4.00 Blood Gas Modality Nasal cannula FiO2 % 36.0 Influenza Type A Antigen Negative Negative Influenza Type B Antigen Negative Negative SARS-CoV-2 Antigen (Rapid) Negative NEGATIVE Test 10/19/24 01:30 10/19/24 01:23 10/19/24 01:08 Range/Units POC Glucose 89 70-106 mg/dl White Blood Count 11.8 H 4.4-10.8 10^3/uL Red Blood Count 5.22 4.5-5.90 10^6/uL Hemoglobin 15.8 13.5-17.5 g/dL Hematocrit 47.7 41.0-53.0 % Mean Corpuscular Volume 91.4 80.0-100.0 fL Mean Corpuscular Hemoglobin 30.2 28.0-32.0 pg Mean Corpuscular Hemoglobin Concent 33.1 32.0-36.0 g/dL Red Cell Distribution Width 14.6 H 11.8-14.3 % Platelet Count 269 140-450 10^3/uL Mean Platelet Volume 7.7 6.9-10.8 fL Neutrophils (%) (Auto) 73.0 37.0-80.0 % Lymphocytes (%) (Auto) 15.8 10.0-50.0 % Monocytes (%) (Auto) 9.7 0.0-12.0 % Eosinophils (%) (Auto) 1.2 0.0-7.0 % Basophils (%) (Auto) 0.3 0.0-2.0 % Neutrophils # (Auto) 8.6 1.6-8.6 10 ^3/uL Lymphocytes # (Auto) 1.9 0.4-5.4 10 ^3/uL Monocytes # (Auto) 1.1 0-1.3 10 ^3/uL Eosinophils # (Auto) 0.1 0-0.8 10 ^3/uL Basophils # (Auto) 0 0-0.2 10 ^3/uL Nucleated Red Blood Cells 0.0 % Sodium Level 141 136-145 mmol/L Potassium Level 4.3 3.5-5.1 mmol/L Chloride Level 107 98-107 mmol/L Carbon Dioxide Level 26 20-31 mmol/L Anion Gap 8 5-15 Blood Urea Nitrogen 13 9-23 mg/dL Creatinine 1.08 0.700-1.30 mg/dL Glomerular Filtration Rate Calc 70 >90 mL/min BUN/Creatinine Ratio 12.0 10.0-20.0 Serum Glucose 102 74-106 mg/dL Lactic Acid Level 1.1 0.4-2.0 mmol/L Calcium Level 10.0 8.7-10.4 mg/dL Total Bilirubin 0.4 0.2-1.0 mg/dL Aspartate Amino Transferase (AST) 24 13-40 U/L Alanine Aminotransferase (ALT) 14 7-40 U/L Alkaline Phosphatase 88 46-116 U/L Troponin I High Sensitivity 6 </=54 ng/L B-Type Natriuretic Peptide 15.44 0-100 pg/mL Total Protein 7.0 5.7-8.2 g/dL Albumin 4.1 3.2-4.8 g/dL Urine Color Light-yellow Yellow Urine Clarity Clear Clear Urine pH 6.5 5.0-9.0 Urine Specific [place] 1.010 1.001-1.035 Urine Protein Negative Negative Urine Ketones Negative Negative Urine Blood 1+ H Negative /uL Urine Nitrite Negative Negative Urine Bilirubin Negative Negative Urine Urobilinogen Normal Negative mg/dL Urine Leukocyte Esterase 1+ Negative /uL Urine RBC 8 0 - 3 /hpf Urine WBC 2 0 - 3 /hpf Urine Squamous Epithelial Cells None seen <5 /hpf Urine Bacteria None seen None Seen /hpf Urine Glucose Normal Normal mg/dL Microbiology Date/Time Source Procedure Growth Status 10/19/24 01:08 Voided Urine Urine Culture - Final Complete [facility] [address] [facility] [address] Ph: [phone] DIAGNOSTIC IMAGING Diagnostic Imaging Report : [id number] Signed PATIENT: RAVI CARDENAS ACCT: [id number] UNIT: [id number] : 1945 LOC: ER ROOM / BED: / AGE / SEX: 79 / M ADM STATUS: REG ER SERVICE ORDERING PHYSICIAN: OSVALDO ROSAS DO PROCEDURE(s): CXRP - CHEST PORTABLE REASON: aloc ORDER NUMBER(s): [id number], ACCESSION NUMBER(s): [id number] CHEST RADIOGRAPH Indication: aloc Technique: Single frontal view of the chest was obtained Comparison: XY CHEST PORTABLE on DOS: 08/17/24 Findings/ IMPRESSION: Low lung volumes with bronchovascular crowding otherwise no active cardiopulmonary disease. ATED BY: TAMIKO FARIAS DO DICTATED DATE/TIME: 10/19/24123 SIGNED BY: TAMIKO FARIAS DO SIGNED DATE/TIME: 10/19/24123 CC: Time of 1ST Reevaluation: 00:45 Reevaluation 1ST: Unchanged Patient Education/Counseling: Other (patient is altered) Family Education/Counseling: No Family Present Comments Patient presented with the above HPI. ALOC workup was initiated. patient was found with the above mentioned diagnosis. the following medications were ordered: n/a the following tests were ordered: troponin, EKG, CXR, UA, lactic acid, CMP, CBC Patient ED course and VS have been stabilized. Patient has been reassessed in the ED and remained in a stable condition. Pertinent incidental findings were discussed with the patient and/or family. Patient/family voices understanding and is agreeable with plan. Patient has been observed in the ED adequate length of time to insure improvement/stability. Escalation of care considered: Consideration of escalation to observation or admission Patient was ADMITTED to the medicine team for further evaluation and treatment of their presentation. All the reports of any imaging studies that were ordered by myself were reviewed by myself. Departure 1 Departure Time of Disposition: 01:41 Impression: Primary Impression: Generalized weakness Additional Impressions: Altered level of consciousness Hypoxemia Disposition: ADMITTED INPATIENT Admit to: Tele Condition: Guarded Discharged With: Self Critical Care Note Critical Care Time?: Yes (35 min-critical care time only) Heart Score Heart Score: Heart Score Response (Comments) Value History N/A 0 EKG N/A 0 Age N/A 0 Risk Factors N/A 0 Troponin N/A 0 Total 0 I personally scribed for OSVALDO ROSAS DO ([email or web address]) on 10/19/24 at 00:52. Electronically submitted by Ambrose Ramirez ([email or web address]). I personally scribed for OSVALDO ROSAS DO ([email or web address]) on 10/19/24 at 01:15. Electronically submitted by Ambrose Ramirez ([email or web address]). I personally scribed for OSVALDO ROSAS DO ([email or web address]) on 10/19/24 at 02:13. Electronically submitted by Ambrose Ramirez ([email or web address]). I personally scribed for OSVALDO ROSAS DO ([email or web address]) on 10/19/24 at 20:40. Electronically submitted by Ambrose Ramirez ([email or web address]). OSVALDO ROSAS DO Oct 19, 2024 00:52
--- NOTE | 2024-10-19 01:27 | DVH ---
CHEST RADIOGRAPH Indication: aloc Technique: Single frontal view of the chest was obtained Comparison: XY CHEST PORTABLE on DOS: 08/17/24 Findings/ IMPRESSION: Low lung volumes with bronchovascular crowding otherwise no active cardiopulmonary disease.
[2024-10-19] MEDS: SODIUM CHLORIDE 0.9% 1,000 ML IV ONE (01:34)
[2024-10-19 01:35] LABS: Basophils # (auto) 0 10 ^3/uL (0-0.2); Basophils % (auto) 0.3 % (0.0-2.0); Eosinophils # (auto) 0.1 10 ^3/uL (0-0.8); Eosinophils % (auto) 1.2 % (0.0-7.0); Hematocrit 47.7 % (41.0-53.0); Hemoglobin 15.8 g/dL (13.5-17.5); Lymphocytes # (auto) 1.9 10 ^3/uL (0.4-5.4); Lymphocytes % (auto) 15.8 % (10.0-50.0); Mean Corpuscular Hemoglobin 30.2 pg (28.0-32.0); Mean Corpuscular Hgb Conc. 33.1 g/dL (32.0-36.0); Mean Corpuscular Volume 91.4 fL (80.0-100.0); Monocytes # (auto) 1.1 10 ^3/uL (0-1.3); Monocytes % (auto) 9.7 % (0.0-12.0); Neutrophils # (auto) 8.6 10 ^3/uL (1.6-8.6); Platelet Count (auto) 269 10^3/uL (140-450); Red Blood Cells 5.22 10^6/uL (4.5-5.90); Red Cell Distribution Width 14.6 % (11.8-14.3); White Blood Cell 11.8 10^3/uL (4.4-10.8)
[2024-10-19 01:42] LABS: Urine Bacteria None Seen /hpf (None Seen)
[2024-10-19] MEDS: ALBUTEROL SULF 2.5 MG/0.5ML(0.5%) NEB SOLN NEB ONE (01:52)
[2024-10-19] MEDS: IPRATROPIUM BROM 0.5 MG/2.5ML INH SOL NEB ONE (01:52)
[2024-10-19 01:53] LABS: Alanine Aminotransferase 14 U/L (7-40); Alkaline Phosphatase 88 U/L (46-116); Anion Gap 8 (5-15); Aspartate Aminotransferase 24 U/L (13-40); Blood Urea Nitrogen 13 mg/dL (9-23); Carbon Dioxide 26 mmol/L (20-31); Glucose 102 mg/dL (74-106); Potassium 4.3 mmol/L (3.5-5.1); Sodium 141 mmol/L (136-145)
[2024-10-19 01:54] LABS: Albumin 4.1 g/dL (3.2-4.8); Bilirubin, Total 0.4 mg/dL (0.2-1.0)
[2024-10-19 01:55] LABS: Urine Blood 1+ /uL (Negative); Urine Clarity Clear (Clear); Urine Color Light-Yellow (Yellow); Urine Protein, UAD Negative (Negative); Urine Squamous Epithelial Cell None Seen /hpf (<5); Urine Urobilinogen Normal (Negative); Urine WBC 2 /hpf (0 - 3); Urine pH 6.5 (5.0-9.0)
[2024-10-19 01:57] LABS: Chloride 107 mmol/L (98-107)
[2024-10-19] MEDS: methylPREDNISolone SOD SUCC 125 MG/2 ML VL IV ONE (02:19)
[2024-10-19] MEDS: cefTRIAXone 1GM/50ML D5W 50 ML IV ONE (02:19)
[2024-10-19 02:42] LABS: Base Excess -4.5 mmol/L (-2.0-3.0)
[2024-10-19 02:43] LABS: COVID19 ANTIGEN SOFIA FIA NEGATIVE (NEGATIVE); Rapid Influenza A Negative (Negative); Rapid Influenza B Negative (Negative)
--- NOTE | 2024-10-19 05:15 | DVHHPRES ---
History of Present Illness Resident Creating Document: REDD AREVALO RESDIENT History of Present Illness This is a 79-year-old male with past medical history of prostate cancer, recurrent UTI, hydrocephalus (status MOTION STUDY ANALYST shunt), hypertension came to the hospital due to shortness of breaths. Per patient, the patient had sick contact 10 days back, we subsequently developed cough, and shortness of breaths. Cough at the beginning was tried L on became productive. Patient denies fever, chest pain, abdominal pain, nausea, vomiting, and recent changes in bladder or bowel m ovement. PMHx:prostate cancer, recurrent UTI, hydrocephalus (status MOTION STUDY ANALYST shunt), hypertension Social history: Ex-smoker, patient lives at home with a friend, has home caregiver, denies any other drug use. Home medication: Amlodipine Allergic history: No known allergies Pulmonary: Asthma Review of Systems Review of Systems General: patient denies fever, fatigue, weaknes, sweating, any recent changes in appetite and weight HEENT: No headaches, visiual changes, hearing loss, tinnitus, nasal congestion and discharge, and sore throat. Cardiovascular: Denies chest pain, palpitations, dyspnea on exertion, orthopnea, or claudication. Respiratory: Reports productive cough and shortness of breaths Gastrointestinal: Denies nausea, vomiting, dysphagia, odynophagia, heartburn, abdominal pain, flatulence, bloating, diarrhea, constipation, change in stool, or blood in stool. Genitourinary: No dysuria, hematuria, discharge, frequency, urgency, nocturia, incontinence, and urinary retention. Endocrine: No heat or cold intolerance, polydipsia, polyuria, and polyphagia. Neurological: No dizziness, extremity weakness and numbness, tremors, gait disturbance, seizures, and memory impairment. Psychiatric: Denies depression, anxiety,or insomnia. Musculoskeletal: Denies neck pain, stiffness and swelling, back pain, muscle weakness, joint pain, stiffness, swelling, or limited range of motion. Skin: No rashes, itching, skin lesion, changes in hair, nail, skin texture and breast. Hematologic/Lymphatic: Denies easy bruising, bleeding tendencies, or lymph node enlargement. Allergies: Coded Allergies: NO KNOWN ALLERGIES (Unverified , 08/17/24) Exam Vital Signs Vital Signs Date Time Temp Pulse Resp B/P (MAP) Pulse Ox O2 Delivery O2 Flow Rate FiO2 10/19/24 04:00 101 10/19/24 04:00 15 117/65 (82) 93 10/19/24 01:53 Simple Mask* 6 50 10/19/24 01:18 98.5 98.5 Exam General Appearance: Alert, Oriented X3, Cooperative, No acute distress HEENT: Atraumatic, PERRLA, EOMI, Mucous membrane moist/pink Respiratory: Left-sided crackles Cardiovascular: Regular rate, Normal S1, Normal S2, No murmurs, no chest wall tenderness Abdominal: Normal bowel sounds, Soft, No tenderness, No hepatospenomegaly, No masses Extremities: No clubbing, No cyanosis, No edema, Normal pulses, No tenderness/swelling Skin: No rashes, No breakdown, No significant lesion Neuro: Normal gait, Normal speech, Strength at 5/5 X4 ext, Normal tone, Sensation intact, Cranial nerves 3-12 NL, Reflexes 2+ Psych/Mental Status: Mental status NL, Mood NL Labs/Xrays Labs Test 10/19/24 04:26 10/19/24 02:37 10/19/24 01:41 10/19/24 01:30 Range/Units Troponin I High Sensitivity 6 </=54 ng/L Blood Gas Specimen Type Arterial Blood Gas Sample Site Left radial Blood Gas Patient Temperature 37.0 Arterial Blood Date Drawn [id number] Arterial Blood pH 7.394 7.350-7.450 Arterial Blood Partial Pressure CO2 32.3 L 35.0-48.0 mmHg Arterial Blood Partial Pressure O2 76.7 L 83.0-108.0 mmHg Arterial Blood HCO3 19.3 L 21.0-28.0 mmol/L Arterial Blood Oxygen Saturation 94.9 94.0-98.0 % Arterial Blood Base Excess -4.5 L -2.0-3.0 mmol/L Arterial Blood Oxyhemoglobin 93.6 L 94.0-98.0 % Arterial Blood Carboxyhemoglobin 0.8 0.5-1.5 % Arterial Blood Methemoglobin 0.6 0.0-1.5 % Deshawn Test Yes Blood Gas Total Hemoglobin 15.10 13.5-17.5 g/dL Blood Gas Liter Flow 4.00 Blood Gas Modality Nasal cannula FiO2 % 36.0 Influenza Type A Antigen Negative Negative Influenza Type B Antigen Negative Negative SARS-CoV-2 Antigen (Rapid) Negative NEGATIVE POC Glucose 89 70-106 mg/dl Test 10/19/24 01:23 10/19/24 01:08 Range/Units White Blood Count 11.8 H 4.4-10.8 10^3/uL Red Blood Count 5.22 4.5-5.90 10^6/uL Hemoglobin 15.8 13.5-17.5 g/dL Hematocrit 47.7 41.0-53.0 % Mean Corpuscular Volume 91.4 80.0-100.0 fL Mean Corpuscular Hemoglobin 30.2 28.0-32.0 pg Mean Corpuscular Hemoglobin Concent 33.1 32.0-36.0 g/dL Red Cell Distribution Width 14.6 H 11.8-14.3 % Platelet Count 269 140-450 10^3/uL Mean Platelet Volume 7.7 6.9-10.8 fL Neutrophils (%) (Auto) 73.0 37.0-80.0 % Lymphocytes (%) (Auto) 15.8 10.0-50.0 % Monocytes (%) (Auto) 9.7 0.0-12.0 % Eosinophils (%) (Auto) 1.2 0.0-7.0 % Basophils (%) (Auto) 0.3 0.0-2.0 % Neutrophils # (Auto) 8.6 1.6-8.6 10 ^3/uL Lymphocytes # (Auto) 1.9 0.4-5.4 10 ^3/uL Monocytes # (Auto) 1.1 0-1.3 10 ^3/uL Eosinophils # (Auto) 0.1 0-0.8 10 ^3/uL Basophils # (Auto) 0 0-0.2 10 ^3/uL Nucleated Red Blood Cells 0.0 % Sodium Level 141 136-145 mmol/L Potassium Level 4.3 3.5-5.1 mmol/L Chloride Level 107 98-107 mmol/L Carbon Dioxide Level 26 20-31 mmol/L Anion Gap 8 5-15 Blood Urea Nitrogen 13 9-23 mg/dL Creatinine 1.08 0.700-1.30 mg/dL Glomerular Filtration Rate Calc 70 >90 mL/min BUN/Creatinine Ratio 12.0 10.0-20.0 Serum Glucose 102 74-106 mg/dL Lactic Acid Level 1.1 0.4-2.0 mmol/L Calcium Level 10.0 8.7-10.4 mg/dL Total Bilirubin 0.4 0.2-1.0 mg/dL Aspartate Amino Transferase (AST) 24 13-40 U/L Alanine Aminotransferase (ALT) 14 7-40 U/L Alkaline Phosphatase 88 46-116 U/L B-Type Natriuretic Peptide 15.44 0-100 pg/mL Total Protein 7.0 5.7-8.2 g/dL Albumin 4.1 3.2-4.8 g/dL Urine Color Light-yellow Yellow Urine Clarity Clear Clear Urine pH 6.5 5.0-9.0 Urine Specific [place] 1.010 1.001-1.035 Urine Protein Negative Negative Urine Ketones Negative Negative Urine Blood 1+ H Negative /uL Urine Nitrite Negative Negative Urine Bilirubin Negative Negative Urine Urobilinogen Normal Negative mg/dL Urine Leukocyte Esterase 1+ Negative /uL Urine RBC 8 0 - 3 /hpf Urine WBC 2 0 - 3 /hpf Urine Squamous Epithelial Cells None seen <5 /hpf Urine Bacteria None seen None Seen /hpf Urine Glucose Normal Normal mg/dL Assessment/Plan Assessment/Plan Acute metabolic encephalopathy, likely due to pneumonia Acute hypoxic respiratory failure, likely demand pneumonia Pneumonia, likely due to Gram-positive Gram-negative/bacteria viral Chest x-ray showed bilateral lower zone infiltration Influenza type a, type B and COVID-19 are negative Check MRSA nares and sputum/urine/blood culture Empiric antibiotics cefepime and azithromycin Breathing treatment Oxygen through nasal cannula History of hypertension Continue amlodipine History of hydrocephalus Status post MOTION STUDY ANALYST shunt Possible prostate cancer, biopsy pending Patient has indwelling catheter DIET: Soft mechanical diet DVT PROPHYLAXIS: Lovenox BOWEL REGIMEN: Colace p.r.n. CODE STATUS: Goal of care discussed for more than 21 minutes, DNR DISPOSITION: Med/surge Patient's status and paln discussed with the patient. Case discussed with Dr. Dove Plan discussed with: Patient, Other (RN) My Orders Orders - REDD AREVALO RESDIPIKA Procedure Category Date Status Time Admit ADMIT 10/19/24 Verified 05:08 Oxygen By Nasal RT 10/19/24 Verified Cannula 05:08 Stat Ekg For Chest BECKY 10/19/24 Verified Pain 05:08 Notify Of Changes BECKY 10/19/24 Verified From Base 05:08 Date of Service: Oct 19, 2024 Billing Provider: JORGE DOVE MD Common Visit Codes: 35349-ZUTPYAU INP/OBS CARE (HIGH) Secondary Visit Codes: 82699-[id number] CARE PLAN 30 MINUTES REDD AREVALO Oct 19, 2024 05:15 JORGE DOVE MD Oct 19, 2024 17:48
[2024-10-19] MEDS: SODIUM CHLORIDE 0.9% 500 ML IV ONE (05:29)
[2024-10-19] MEDS: DOCUSATE SOD 100 MG CAP PO ONE (05:38)
[2024-10-19] MEDS: CEFEPIME 1GM/ 50ML 50 ML IV SCH (06:04)
[2024-10-19] MEDS: ALBUTEROL SULF 2.5 MG/0.5ML(0.5%) NEB SOLN NEB SCH (06:23)
[2024-10-19] MEDS: IPRATROPIUM BROM 0.5 MG/2.5ML INH SOL NEB SCH (06:23)
--- NOTE | 2024-10-19 06:40 | ECG ---
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
[2024-10-19] MEDS: amLODIPine BESYLATE 5 MG TAB PO SCH (09:46)
[2024-10-19] MEDS: AZITHROMYCIN 500MG/ 250ML 250 ML IV SCH (09:47)
--- NOTE | 2024-10-19 11:56 | DVH ---
Procedure: US CHEST ULTRASOUND 10/19/2024 10:28 AM Indication: pleural effusion Comparison: None Technique: Sonogram of right and left julia thoraces was obtained utilizing grayscale and color Dopple r techniques. FINDINGS: No pleural effusion is seen in the right or left julia thoraces. IMPRESSION: No pleural effusion bilaterally.
--- NOTE | 2024-10-19 13:36 | ECG ---
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
[2024-10-19] MEDS: MEROPENEM 1GM IVPB 50 ML IV SCH (15:09)
[2024-10-19] MEDS: HALOPERIDOL LACTATE 5 MG/ML INJ VIAL IM ONE (16:51)
[2024-10-19] MEDS: FUROSEMIDE 40 MG/4 ML VIAL IV ONE (17:28)
--- NOTE | 2024-10-19 18:49 | DVHPNRES ---
Progress Note Date Seen: Oct 19, 2024 Resident Creating Document: LILOCALVIN RESIDENT Medical Necessity Reason Pt with a Central, PICC or Fol: No Subjective Review of Systems Patient 79-year-old male with a past medical history of BPH/?prostate cancer, hydrocephalus with a ELECTRICAL MANAGER shunt, recurrent UTI, hypertension came to the ED chief complaint of worsening shortness of breath. Patient reports that since the last 3-4 days he started having cough associated with yellowish white sputum and feeling feverish, no associated blood in the sputum. Patient reported the cough started worsening and yesterday he was coughing a lot associated with worsening shortness of breath. Patient's caregiver also reported that his level of consciousness was also altered following which he called the 911. Patient denied chest pain, abdominal pain, nausea, vomiting. Past medical history: BPH/?prostate cancer, hydrocephalus with a ELECTRICAL MANAGER shunt, recurrent UTI, hypertension Social history: Patient was a ex-smoker and lives at home with a caregiver Home medications: Amlodipine 10 mg, benazepril 40 mg, tamsulosin 0.4 mg, pantoprazole, finasteride 5 mg Review of systems At the time of examination, patient feels better with shortness of breath that has improved. Reports episodes of cough Denied abdominal pain, nausea, vomiting Objective vital signs Vital Sign Date Time Temp Pulse Resp B/P (MAP) Pulse Ox O2 Delivery O2 Flow Rate FiO2 10/19/24 18:00 90 17 118/79 (92) 96 10/19/24 13:12 98.2 98.2 10/19/24 11:45 Nasal Cannula* 4 36 Total Intake and Output 10/18/24 10/18/24 10/19/24 15:00 23:00 07:00 Intake Total 1300 ml Balance 1300 ml medications Current Medications Medications Dose Ordered Sig/Dominic Route Start Time Stop Time Status Last Admin Dose Admin Azithromycin 250 ml @ 125 mls/hr DAILY IV 10/19/24 10:00 10/19/24 09:47 125 MLS/HR Ipratropium [place] 0.5 mg Q6HR NEB 10/19/24 06:00 10/19/24 11:44 0.5 MG Albuterol 2.5 mg Q6HR NEB 10/19/24 06:00 10/19/24 11:44 2.5 MG Docusate Sodium 100 mg DAILYPRN PRN PO 10/19/24 05:15 Amlodipine Besylate 5 mg DAILY PO 10/19/24 10:00 10/19/24 09:46 5 MG Meropenem 50 ml @ 17 mls/hr Q8HR IV 10/19/24 14:00 10/19/24 15:09 17 MLS/HR Examination Physical Examination Constitutional: Patient was alert and oriented to time, place and person and does not appear to be in acute respiratory distress while on oxygen. Gen - no pallor, no icterus, no cyanosis, no clubbing, no LAD, no edema . Skin - Patients skin is warm and dry. HEENT - normocephalic, atraumatic, dry mucous membranes. Neck - full ROM, no LAD, no JVD Pulmonary - B/L equal air entry with basilar inspiratory crackles bilaterally, no wheezing. cardiovascular - normal S1,S2 heard. no murmurs heard. GI - soft abdomen without tenderness to palpation. no hepatospleenomegaly. Bowel sounds normoactive Neurological - Bilateral upper extremity strength 5/5, bilateral lower extremity strength 5/5, no facial droop, normal speech, no tremor, no sensory deficiets. laboratory and microbiology Laboratory Tests 10/19/24 01:23 Test 10/19/24 01:23 Range/Units Serum Glucose 102 74-106 mg/dL Problem List/Assessment/Plan Problem List/Assessment/Plan Assessment Acute hypoxic respiratory failure likely due to pneumonia Community-acquired pneumonia likely ?Gram-negative ?Atypical bacteria ?viral ? Acute exacerbation of heart failure with preserved ejection fraction UTI ? Asymptomatic bacteriuria H/o hypertension H/o hydrocephalus H/o BPH ?Prostate cancer Chest x-ray shows suspected left lower lobe opacity increased pulmonary vascular congestion with suspected interstitial edema Chest ultrasound did not report any pleural effusion bilaterally Urine bacteria culture shows growth of ESBL E coli PSA 10.68 Plan - on oxygen via nasal cannula at 4 liter/minute - IV antibiotics meropenem and azithromycin - DuoNebs ipratropium and levalbuterol q.6 hours - amlodipine 5 mg started for high blood pressure, will up titrate as needed - on telemetry - patient was in the Urology outpatient clinic for workup of prostate cancer - patient has a Ram's catheter, changes every 1 month with the Urology Goals of care discussed with the patient for over 25 minutes. Full code Plan discussed with Dr. Cristina Plan discussed with: Patient, Other (ashley ( caregiver )) My Orders My Orders Orders - CALVIN NAGY Procedure Category Date Status Time Cardiac DIET 10/19/24 Transmitted Diet-2gna,Lofat,Lochol Lunch Chest Ultrasound US 10/19/24 Resulted 10:23 Meropenem 1gm Ivpb PHA 10/19/24 In Process (Merrem 1gm/ Ns) 14:00 Transfer Orders XFER 10/19/24 Transmitted 18:10 Date of Service: Oct 19, 2024 Billing Provider: ESTRELLA CRISTINA MD Common Visit Codes: [id number] INP/OBS CARE(HIGH) CALVIN NAGY RESIDENT Oct 19, 2024 18:49 ESTRELLA CRISTINA MD Oct 19, 2024 20:29
[2024-10-19] MEDS ORDERED: MIRT-94 PO (22:40)
[2024-10-19] MEDS ORDERED: PANT40TA2 PO (22:40)
[2024-10-19] MEDS ORDERED: FESO4TAB PO (22:40)
[2024-10-19] MEDS ORDERED: TRAZ-227 PO (22:40)
[2024-10-19] MEDS ORDERED: TAMS0.4C39 PO (22:40)
[2024-10-19] MEDS ORDERED: BENA40TA83 PO (22:40)
[2024-10-20] VITALS (17 sets, daily range): BP systolic 122–145; BP diastolic 73–82; PULSE 71–103; RESP 14–20; TEMP 97.4–98.6; O2SAT 90–99
[2024-10-20] MEDS: LEVALBUTEROL HCL 1.25 MG/3 ML NEB NEB SCH (00:14)
[2024-10-20 07:18] LABS: Chloride 106 mmol/L (98-107); Potassium 3.8 mmol/L (3.5-5.1); Sodium 141 mmol/L (136-145)
[2024-10-20 07:19] LABS: Anion Gap 9 (5-15); Carbon Dioxide 26 mmol/L (20-31)
[2024-10-20 07:20] LABS: Calcium 9.6 mg/dL (8.7-10.4)
[2024-10-20 07:24] LABS: BUN/Creatinine Ratio 14.9 (10.0-20.0); Basophils # (auto) 0 10 ^3/uL (0-0.2); Basophils % (auto) 0.1 % (0.0-2.0); Blood Urea Nitrogen 15 mg/dL (9-23); Eosinophils # (auto) 0 10 ^3/uL (0-0.8); Glucose 116 mg/dL (74-106); Hematocrit 42.4 % (41.0-53.0); Hemoglobin 14.2 g/dL (13.5-17.5); Lymphocytes # (auto) 1.5 10 ^3/uL (0.4-5.4); Lymphocytes % (auto) 6.7 % (10.0-50.0); Mean Corpuscular Hemoglobin 30.4 pg (28.0-32.0); Mean Corpuscular Hgb Conc. 33.4 g/dL (32.0-36.0); Monocytes # (auto) 1.6 10 ^3/uL (0-1.3); Monocytes % (auto) 7.4 % (0.0-12.0); Neutrophils # (auto) 18.8 10 ^3/uL (1.6-8.6); Neutrophils % (auto) 85.8 % (37.0-80.0); Nucleated Red Blood Cells % 0.1 %; Platelet Count (auto) 294 10^3/uL (140-450); Red Blood Cells 4.66 10^6/uL (4.5-5.90); Red Cell Distribution Width 14.7 % (11.8-14.3); White Blood Cell 21.9 10^3/uL (4.4-10.8)
[2024-10-20] MEDS: FUROSEMIDE 20 MG/2 ML VIAL IV ONE (15:35)
--- NOTE | 2024-10-20 15:36 | DVHPNRES ---
Progress Note Date Seen: Oct 20, 2024 Resident Creating Document: JAJABEVCALVIN RESIDENT Medical Necessity Reason Pt with a Central, PICC or Fol: No Subjective Review of Systems At the time of examination, patient feels better with shortness of breath that has improved, O2 requirement has decreased Reports fewer episodes of cough Denied abdominal pain, nausea, vomiting Objective vital signs Vital Sign Date Time Temp Pulse Resp B/P (MAP) Pulse Ox O2 Delivery O2 Flow Rate FiO2 10/20/24 12:48 97.4 75 18 129/75 (93) 91 97.4 10/20/24 11:51 Nasal Cannula* 2 28 Total Intake and Output 10/19/24 10/19/24 10/20/24 15:00 23:00 07:00 Intake Total 312.5 ml 50 ml 290 ml Output Total 850 ml Balance 312.5 ml 50 ml -560 ml medications Current Medications Medications Dose Ordered Sig/Dominic Route Start Time Stop Time Status Last Admin Dose Admin Azithromycin 250 ml @ 125 mls/hr DAILY IV 10/19/24 10:00 10/20/24 11:03 125 MLS/HR Ipratropium [place] 0.5 mg Q6HR NEB 10/19/24 06:00 10/20/24 11:51 0.5 MG Docusate Sodium 100 mg DAILYPRN PRN PO 10/19/24 05:15 Amlodipine Besylate 5 mg DAILY PO 10/19/24 10:00 10/20/24 10:59 5 MG Meropenem 50 ml @ 17 mls/hr Q8HR IV 10/19/24 14:00 10/20/24 05:34 17 MLS/HR Levalbuterol HCl 1.25 mg Q6HR NEB 10/20/24 00:00 10/20/24 11:52 1.25 MG Examination Constitutional: Patient was alert and oriented to time, place and person and does not appear to be in acute respiratory distress while on oxygen. Gen - no pallor, no icterus, no cyanosis, no clubbing, no LAD, no edema . Skin - Patients skin is warm and dry. HEENT - normocephalic, atraumatic, dry mucous membranes. Neck - full ROM, no LAD, no JVD Pulmonary - B/L equal air entry which improved since yesterday with basilar inspiratory crackles bilaterally more on the left , no wheezing. cardiovascular - normal S1,S2 heard. no murmurs heard. GI - soft abdomen without tenderness to palpation. no hepatospleenomegaly. Bowel sounds normoactive Neurological - Bilateral upper extremity strength 4/5, bilateral lower extremity strength 4/5, no facial droop, normal speech, no tremor, no sensory deficiets. laboratory and microbiology Laboratory Tests 10/20/24 06:23 Test 10/20/24 06:23 Range/Units Serum Glucose 116 H 74-106 mg/dL Microbiology Date/Time Source Procedure Growth Status 10/20/24 06:15 Nose MRSA Screen - Final Complete 10/19/24 07:15 Blood Blood Culture - Preliminary NO GROWTH AFTER 24 HOURS OF INCUBATION. Resulted 10/19/24 01:08 Voided Urine Urine Culture - Preliminary Resulted Problem List/Assessment/Plan Problem List/Assessment/Plan Assessment Acute hypoxic respiratory failure likely due to pneumonia Community-acquired pneumonia likely ?Gram-negative ?Atypical bacteria ?viral ? Acute exacerbation of heart failure with preserved ejection fraction UTI ? Asymptomatic bacteriuria H/o hypertension H/o hydrocephalus H/o BPH ?Prostate cancer Chest x-ray shows suspected left lower lobe opacity increased pulmonary vascular congestion with suspected interstitial edema Chest ultrasound did not report any pleural effusion bilaterally Urine bacteria culture shows growth of ESBL E coli PSA 10.68 Plan - on oxygen via nasal cannula at 2 liter/minute - IV antibiotics meropenem and azithromycin - DuoNebs ipratropium and levalbuterol q.6 hours - amlodipine 5 mg started for high blood pressure, will up titrate as needed - furosemide IV 20 mg daily - on telemetry - patient was in the Urology outpatient clinic for workup of prostate cancer - patient has a Ram's catheter, changes every 1 month with the Urology - physical therapy evaluation Goals of care discussed with the patient for over 21 minutes. Full code Plan discussed with Dr. Chatterjee Plan discussed with: Patient My Orders My Orders Orders - CALVIN NAGY RESIDENT Procedure Category Date Status Time Transfer Orders XFER 10/19/24 Transmitted 18:10 Levalbuterol Hcl PHA 10/20/24 In Process (Xopenex Medneb) 00:00 Code Status CODE 10/19/24 Transmitted 18:53 Transfer Orders XFER 10/20/24 Transmitted 11:49 Discontinue Tele BECKY 10/20/24 In Process 11:49 Pt Request For Service PT 10/20/24 Verified 15:25 Azithromycin Tablet PHA 10/21/24 Verified (Zithromax Tablet) 10:00 Date of Service: Oct 20, 2024 Billing Provider: QUINN CHATTERJEE MD Common Visit Codes: [id number] INP/OBS CARE(HIGH) CALVIN NAGY RESIDENT Oct 20, 2024 15:36 QUINN CHATTERJEE MD Oct 20, 2024 22:28
[2024-10-20] MEDS ORDERED: SENNA 8.6 MG TAB PO PRN (15:45)
[2024-10-21] VITALS (17 sets, daily range): BP systolic 137–171; BP diastolic 87–104; PULSE 81–120; RESP 16–20; TEMP 97.4–98.9; O2SAT 89–98
[2024-10-21 06:20] LABS: Basophils # (auto) 0 10 ^3/uL (0-0.2); Basophils % (auto) 0.1 % (0.0-2.0); Eosinophils # (auto) 0.1 10 ^3/uL (0-0.8); Eosinophils % (auto) 0.3 % (0.0-7.0); Hemoglobin 16.1 g/dL (13.5-17.5); Lymphocytes # (auto) 3.1 10 ^3/uL (0.4-5.4); Lymphocytes % (auto) 16.9 % (10.0-50.0); Mean Corpuscular Hemoglobin 30.6 pg (28.0-32.0); Mean Corpuscular Hgb Conc. 33.6 g/dL (32.0-36.0); Mean Corpuscular Volume 91.3 fL (80.0-100.0); Monocytes # (auto) 1.9 10 ^3/uL (0-1.3); Monocytes % (auto) 10.6 % (0.0-12.0); Neutrophils % (auto) 72.1 % (37.0-80.0); Platelet Count (auto) 347 10^3/uL (140-450); Red Blood Cells 5.26 10^6/uL (4.5-5.90); Red Cell Distribution Width 14.6 % (11.8-14.3)
[2024-10-21 06:30] LABS: Anion Gap 7 (5-15); Chloride 102 mmol/L (98-107); Potassium 4.3 mmol/L (3.5-5.1); Sodium 140 mmol/L (136-145)
[2024-10-21 06:32] LABS: Calcium 10.1 mg/dL (8.7-10.4)
[2024-10-21 06:33] LABS: Carbon Dioxide 31 mmol/L (20-31)
[2024-10-21 06:36] LABS: BUN/Creatinine Ratio 15.5 (10.0-20.0); Blood Urea Nitrogen 16 mg/dL (9-23); Glucose 98 mg/dL (74-106)
--- NOTE | 2024-10-21 08:42 | DVH ---
CLINICAL INFORMATION: 79 years old, Male; interstitial edema, left lower pneumonia- progress. TECHNIQUE: Single AP portable chest radiograph was obtained. COMPARISON: XY CHEST PORTABLE on DOS: 10/19/24, XY CHEST PORTABLE on DOS: 08/17/24 FINDINGS: Mild atelectasis in the lung bases. No focal consolidation. Improved aeration of the lungs compared t o the prior exam. No pneumothorax or pleural effusion. Prominence of the pulmonary vasculature and in terstitial opacities have improved. Partially visualized STATION GATEMAN shunt catheter. No other significant in terval change. IMPRESSION: 1. Improved aeration of the lungs with improved/nearly completely resolved prominence of the pulmonar y vasculature and interstitial opacities. 2. No focal consolidation.
[2024-10-21] MEDS: AZITHROMYCIN 250 MG TAB PO SCH (08:58)
[2024-10-21] MEDS: FUROSEMIDE 20 MG/2 ML VIAL IV SCH (09:01)
[2024-10-21] MEDS ORDERED: QUEtiapine FUMARATE 25 MG TAB PO SCH (10:00)
--- NOTE | 2024-10-21 19:29 | DVHPNRES ---
Progress Note Date Seen: Oct 21, 2024 Resident Creating Document: EDWAR NAGYCHARLES RESIDENT Medical Necessity Reason Pt with a Central, PICC or Fol: No Subjective Review of Systems patient feels better with improved breathing and no respiratory distress, O2 requirement has decreased Reports fewer episodes of cough Denied abdominal pain, nausea, vomiting Objective vital signs Vital Sign Date Time Temp Pulse Resp B/P (MAP) Pulse Ox O2 Delivery O2 Flow Rate FiO2 10/21/24 18:06 100 18 97 10/21/24 16:38 97.6 145/87 (106) 97.6 10/21/24 13:03 Room Air 0.0 10/21/24 13:03 21 Total Intake and Output 10/20/24 10/20/24 10/21/24 15:00 23:00 07:00 Intake Total 800 ml 850 ml Output Total 500 ml 1400 ml Balance 300 ml -550 ml medications Current Medications Medications Dose Ordered Sig/Dominic Route Start Time Stop Time Status Last Admin Dose Admin Ipratropium [place] 0.5 mg Q6HR NEB 10/19/24 06:00 10/21/24 18:24 0.5 MG Docusate Sodium 100 mg DAILYPRN PRN PO 10/19/24 05:15 Amlodipine Besylate 5 mg DAILY PO 10/19/24 10:00 10/21/24 09:00 5 MG Meropenem 50 ml @ 17 mls/hr Q8HR IV 10/19/24 14:00 10/21/24 16:44 17 MLS/HR Levalbuterol HCl 1.25 mg Q6HR NEB 10/20/24 00:00 10/21/24 18:24 1.25 MG Azithromycin 500 mg DAILY PO 10/21/24 10:00 10/21/24 08:58 500 MG Sennosides 17.2 mg QHSP PRN PO 10/20/24 15:45 Furosemide 20 mg DAILY IV 10/21/24 09:00 10/21/24 09:01 20 MG Examination Constitutional: Patient was alert and oriented to time, place and person and does not appear to be in acute respiratory distress while on oxygen. Gen - no pallor, no icterus, no cyanosis, no clubbing, no LAD, no edema . Skin - Patients skin is warm and dry. HEENT - normocephalic, atraumatic, dry mucous membranes. Neck - full ROM, no LAD, no JVD Pulmonary - B/L equal air entry which improved since yesterday with basilar inspiratory crackles bilaterally more on the left , no wheezing. cardiovascular - normal S1,S2 heard. no murmurs heard. GI - soft abdomen without tenderness to palpation. no hepatospleenomegaly. Bowel sounds normoactive Neurological - Bilateral upper extremity strength 4/5, bilateral lower extremity strength 4/5, no facial droop, normal speech, no tremor, no sensory deficiets. laboratory and microbiology Laboratory Tests 10/21/24 05:05 Test 10/21/24 05:05 Range/Units Serum Glucose 98 74-106 mg/dL Microbiology Date/Time Source Procedure Growth Status 10/20/24 06:15 Nose MRSA Screen - Final Complete 10/19/24 07:15 Blood Blood Culture - Preliminary NO GROWTH AFTER 48 HOURS OF INCUBATION. Resulted 10/19/24 01:08 Voided Urine Urine Culture - Final Complete Problem List/Assessment/Plan Problem List/Assessment/Plan Assessment Acute hypoxic respiratory failure likely due to pneumonia Community-acquired pneumonia likely ?Gram-negative ?Atypical bacteria ?viral ? Acute exacerbation of heart failure with preserved ejection fraction UTI ? Asymptomatic bacteriuria H/o hypertension H/o hydrocephalus H/o BPH ?Prostate cancer Chest x-ray shows suspected left lower lobe opacity increased pulmonary vascular congestion with suspected interstitial edema Chest ultrasound did not report any pleural effusion bilaterally Urine bacteria culture shows growth of ESBL E coli PSA 10.68 Plan - on oxygen via nasal cannula at 2 liter/minute - IV antibiotics meropenem and azithromycin - DuoNebs ipratropium and levalbuterol q.6 hours - amlodipine 5 mg started for high blood pressure, will up titrate as needed - furosemide IV 20 mg daily - on telemetry - patient was in the Urology outpatient clinic for workup of prostate cancer - patient has a Ram's catheter, changes every 1 month with the Urology - physical therapy evaluation - incentive spirometry Patient was tried to wean of oxygen but he desaturated to 88% on room air. Continuing oxygen via nasal cannula at 1-2 liters/minute. Re-evaluation tomorrow Goals of care discussed with the patient for over 21 minutes. Full code Plan discussed with Dr. Chatterjee Plan discussed with: Patient My Orders My Orders Orders - JHAJJ,SARPUNEET RESIDENT Procedure Category Date Status Time Chest Xray 1 View XY 10/21/24 Resulted 07:43 Furosemide Injection PHA 10/21/24 In Process (Lasix Injection) 09:00 Incentive Spirometry ORDERS 10/21/24 Transmitted 12:53 Date of Service: Oct 21, 2024 Billing Provider: QUINN CHATTERJEE MD Common Visit Codes: [id number] INP/OBS CARE(HIGH) CALVIN NAGY RESIDENT Oct 21, 2024 19:29 QUINN CHATTERJEE MD Oct 22, 2024 07:14
[2024-10-21] MEDS: FUROSEMIDE 20 MG/2 ML VIAL IV ONE (22:19)
[2024-10-22] VITALS (17 sets, daily range): BP systolic 109–135; BP diastolic 72–88; PULSE 71–112; RESP 16–20; TEMP 97.4–97.9; O2SAT 91–99
[2024-10-22] MEDS: MEROPENEM 1GM IVPB 50 ML IV SCH (00:54)
[2024-10-22 06:41] LABS: Basophils # (auto) 0 10 ^3/uL (0-0.2); Basophils % (auto) 0.1 % (0.0-2.0); Eosinophils # (auto) 0.1 10 ^3/uL (0-0.8); Eosinophils % (auto) 0.4 % (0.0-7.0); Hematocrit 48.6 % (41.0-53.0); Hemoglobin 16.4 g/dL (13.5-17.5); Lymphocytes # (auto) 2.7 10 ^3/uL (0.4-5.4); Lymphocytes % (auto) 14.7 % (10.0-50.0); Mean Corpuscular Hemoglobin 30.6 pg (28.0-32.0); Mean Corpuscular Hgb Conc. 33.8 g/dL (32.0-36.0); Mean Corpuscular Volume 90.6 fL (80.0-100.0); Monocytes # (auto) 2.1 10 ^3/uL (0-1.3); Monocytes % (auto) 11.1 % (0.0-12.0); Neutrophils # (auto) 13.7 10 ^3/uL (1.6-8.6); Neutrophils % (auto) 73.7 % (37.0-80.0); Platelet Count (auto) 392 10^3/uL (140-450); Red Blood Cells 5.37 10^6/uL (4.5-5.90); Red Cell Distribution Width 14.5 % (11.8-14.3); White Blood Cell 18.6 10^3/uL (4.4-10.8)
[2024-10-22 06:44] LABS: Chloride 101 mmol/L (98-107); Potassium 4.1 mmol/L (3.5-5.1); Sodium 139 mmol/L (136-145)
[2024-10-22 06:45] LABS: Anion Gap 7 (5-15); Carbon Dioxide 31 mmol/L (20-31)
[2024-10-22 06:46] LABS: Calcium 10.4 mg/dL (8.7-10.4)
[2024-10-22 06:50] LABS: BUN/Creatinine Ratio 19.8 (10.0-20.0)
[2024-10-22 06:52] LABS: Blood Urea Nitrogen 24 mg/dL (9-23); Glucose 119 mg/dL (74-106)
--- NOTE | 2024-10-22 14:16 | DVHPNRES ---
Progress Note Date Seen: Oct 22, 2024 Resident Creating Document: EDWAR NAGYCHARLES RESIDENT Medical Necessity Reason Pt with a Central, PICC or Fol: Yes The following are medically ne: Ram Catheter Subjective Review of Systems patient feels better with improved breathing and no respiratory distress, O2 requirement has decreased but still O2 could not be weaned off. Reports fewer episodes of cough Denied abdominal pain, nausea, vomiting Objective vital signs Vital Sign Date Time Temp Pulse Resp B/P (MAP) Pulse Ox O2 Delivery O2 Flow Rate FiO2 10/22/24 11:56 71 16 99 10/22/24 11:48 Nasal Cannula* 3 32 10/22/24 09:32 114/88 10/22/24 09:00 97.7 97.7 Total Intake and Output 10/21/24 10/21/24 10/22/24 14:59 22:59 06:59 Intake Total 50 ml 480 ml 350 ml Output Total 1000 ml 500 ml Balance 50 ml -520 ml -150 ml medications Current Medications Medications Dose Ordered Sig/Dominic Route Start Time Stop Time Status Last Admin Dose Admin Ipratropium [place] 0.5 mg Q6HR NEB 10/19/24 06:00 10/22/24 11:48 0.5 MG Docusate Sodium 100 mg DAILYPRN PRN PO 10/19/24 05:15 Amlodipine Besylate 5 mg DAILY PO 10/19/24 10:00 10/22/24 09:32 5 MG Levalbuterol HCl 1.25 mg Q6HR NEB 10/20/24 00:00 10/22/24 11:48 1.25 MG Azithromycin 500 mg DAILY PO 10/21/24 10:00 10/22/24 09:30 500 MG Sennosides 17.2 mg QHSP PRN PO 10/20/24 15:45 Furosemide 20 mg DAILY IV 10/21/24 09:00 10/22/24 09:32 20 MG Meropenem 50 ml @ 17 mls/hr Q8H IV 10/22/24 01:00 10/22/24 09:33 17 MLS/HR Examination Constitutional: Patient was alert and oriented to time, place and person and does not appear to be in acute respiratory distress while on oxygen. Gen - no pallor, no icterus, no cyanosis, no clubbing, no LAD, no edema . Skin - Patients skin is warm and dry. HEENT - normocephalic, atraumatic, dry mucous membranes. Neck - full ROM, no LAD, no JVD Pulmonary - B/L equal air entry which improved since yesterday with basilar inspiratory crackles , no wheezing. cardiovascular - normal S1,S2 heard. no murmurs heard. GI - soft abdomen without tenderness to palpation. no hepatospleenomegaly. Bowel sounds normoactive Neurological - Bilateral upper extremity strength 4/5, bilateral lower extremity strength 4/5, no facial droop, normal speech, no tremor, no sensory deficiets. laboratory and microbiology Laboratory Tests 10/22/24 05:56 Test 10/22/24 05:56 Range/Units Serum Glucose 119 H 74-106 mg/dL Microbiology Date/Time Source Procedure Growth Status 10/20/24 06:15 Nose MRSA Screen - Final Complete 10/19/24 07:15 Blood Blood Culture - Preliminary NO GROWTH AFTER 72 HOURS OF INCUBATION. Resulted 10/19/24 01:08 Voided Urine Urine Culture - Final Complete Problem List/Assessment/Plan Problem List/Assessment/Plan Assessment Acute hypoxic respiratory failure likely due to pneumonia Community-acquired pneumonia likely ?Gram-negative ?Atypical bacteria ?viral ? Acute exacerbation of heart failure with preserved ejection fraction UTI ? Asymptomatic bacteriuria H/o hypertension H/o hydrocephalus H/o BPH ?Prostate cancer Chest x-ray shows suspected left lower lobe opacity increased pulmonary vascular congestion with suspected interstitial edema Chest ultrasound did not report any pleural effusion bilaterally Urine bacteria culture shows growth of ESBL E coli PSA 10.68 Plan - on oxygen via nasal cannula at 2 liter/minute - IV antibiotics meropenem and azithromycin - DuoNebs ipratropium and levalbuterol q.6 hours - amlodipine 5 mg started for high blood pressure, will up titrate as needed - furosemide IV 20 mg daily - on telemetry - patient was in the Urology outpatient clinic for workup of prostate cancer - patient has a Ram's catheter, changes every 1 month with the Urology - physical therapy evaluation - incentive spirometry Patient was tried to wean of oxygen but he desaturated to 88% on room air. Continuing oxygen via nasal cannula at 1-2 liters/minute. ABG on room air shows pO2 57. Re-evaluation tomorrow Goals of care discussed with the patient for over 21 minutes. Full code Plan discussed with Dr. Chatterjee Plan discussed with: Patient, Other (caregiver) My Orders My Orders Orders - CALVIN NAGY Procedure Category Date Status Time Meropenem 1gm Ivpb PHA 10/22/24 In Process (Merrem 1gm/ Ns) 01:00 Abg W/ Co-Ox RT 10/22/24 Logged 12:00 Date of Service: Oct 22, 2024 Billing Provider: QUINN CHATTERJEE MD Common Visit Codes: [id number] INP/OBS CARE(HIGH) CALVIN NAGY RESIDENT Oct 22, 2024 14:16 QUINN CHATTERJEE MD Oct 22, 2024 23:35
[2024-10-22 15:41] LABS: Base Excess 4.4 mmol/L (-2.0-3.0)
[2024-10-23] VITALS (19 sets, daily range): BP systolic 118–136; BP diastolic 67–84; PULSE 58–107; RESP 13–20; TEMP 97.5–98.4; O2SAT 91–100
[2024-10-23 08:28] LABS: Basophils # (auto) 0 10 ^3/uL (0-0.2); Basophils % (auto) 0.1 % (0.0-2.0); Eosinophils # (auto) 0.1 10 ^3/uL (0-0.8); Eosinophils % (auto) 0.6 % (0.0-7.0); Hematocrit 47.1 % (41.0-53.0); Hemoglobin 15.8 g/dL (13.5-17.5); Lymphocytes # (auto) 3.1 10 ^3/uL (0.4-5.4); Lymphocytes % (auto) 17.8 % (10.0-50.0); Mean Corpuscular Hemoglobin 30.3 pg (28.0-32.0); Mean Corpuscular Hgb Conc. 33.5 g/dL (32.0-36.0); Mean Corpuscular Volume 90.3 fL (80.0-100.0); Monocytes # (auto) 1.7 10 ^3/uL (0-1.3); Monocytes % (auto) 9.8 % (0.0-12.0); Neutrophils # (auto) 12.5 10 ^3/uL (1.6-8.6); Neutrophils % (auto) 71.7 % (37.0-80.0); Platelet Count (auto) 367 10^3/uL (140-450); Red Blood Cells 5.21 10^6/uL (4.5-5.90); Red Cell Distribution Width 14.5 % (11.8-14.3); White Blood Cell 17.4 10^3/uL (4.4-10.8)
[2024-10-23 08:36] LABS: Chloride 104 mmol/L (98-107); Potassium 3.8 mmol/L (3.5-5.1); Sodium 140 mmol/L (136-145)
[2024-10-23 08:37] LABS: Anion Gap 7 (5-15); Calcium 9.6 mg/dL (8.7-10.4); Carbon Dioxide 29 mmol/L (20-31)
[2024-10-23 08:42] LABS: BUN/Creatinine Ratio 24.3 (10.0-20.0)
[2024-10-23 08:43] LABS: Blood Urea Nitrogen 26 mg/dL (9-23); Glucose 118 mg/dL (74-106)
--- NOTE | 2024-10-23 22:37 | DVHPN2 ---
Subjective The patient seen and examined at bedside. Still tired and sleepy. Reviewed: Care Plan, H&P, Labs, Medications, Previous Orders, Radiology Changes from previous H/P or p: No Changes Objective Vitals Vital Signs Date Time Temp Pulse Resp B/P (MAP) Pulse Ox O2 Delivery O2 Flow Rate FiO2 10/23/24 22:08 98.4 99 13 136/84 (101) 94 98.4 10/23/24 20:00 Room Air* 0 21 Intake/Output Intake and Output 10/23/24 07:00 Intake Total 830 ml Output Total 700 ml Balance 130 ml Intake Oral 780 ml IV Total 50 ml Output Urine Total 700 ml General Appearance: Alert, Cooperative, No acute distress HEENT: Atraumatic, PERRLA, EOMI, Mucous membr. moist/pink Neck: Supple Lungs: Clear to auscultation, Normal air movement Cardiovascular: Regular rate, Normal S1, Normal S2, No murmurs, Gallops, Rubs Abdomen: Normal bowel sounds, Soft, No tenderness Neuro: Cranial nerves 3-12 NL Psych/Mental Status: Mental status NL Medications Current Medications Medications Dose Ordered Sig/Dominic Route Start Time Stop Time Status Last Admin Dose Admin Ipratropium [place] 0.5 mg Q6HR NEB 10/19/24 06:00 10/23/24 19:01 0.5 MG Docusate Sodium 100 mg DAILYPRN PRN PO 10/19/24 05:15 Amlodipine Besylate 5 mg DAILY PO 10/19/24 10:00 10/23/24 11:03 5 MG Levalbuterol HCl 1.25 mg Q6HR NEB 10/20/24 00:00 10/23/24 19:02 1.25 MG Azithromycin 500 mg DAILY PO 10/21/24 10:00 10/23/24 11:02 500 MG Sennosides 17.2 mg QHSP PRN PO 10/20/24 15:45 Furosemide 20 mg DAILY IV 10/21/24 09:00 10/23/24 11:03 20 MG Meropenem 50 ml @ 17 mls/hr Q8H IV 10/22/24 01:00 10/23/24 17:48 17 MLS/HR Laboratory Results Laboratory Tests 10/23/24 08:01 Chemistry Test 10/23/24 08:01 Calcium Level 9.6 mg/dL (8.7-10.4) Urinalysis Test 10/19/24 01:08 Urine Color Light-yellow (Yellow) Urine Clarity Clear (Clear) Urine pH 6.5 (5.0-9.0) Urine Specific [place] 1.010 (1.001-1.035) Urine Protein Negative (Negative) Urine Ketones Negative (Negative) Urine Blood 1+ /uL (Negative) H Urine Nitrite Negative (Negative) Urine Bilirubin Negative (Negative) Urine Urobilinogen Normal mg/dL (Negative) Urine Leukocyte Esterase 1+ /uL (Negative) Urine RBC 8 /hpf (0 - 3) Urine WBC 2 /hpf (0 - 3) Urine Squamous Epithelial Cells None seen /hpf (<5) Urine Bacteria None seen /hpf (None Seen) Urine Glucose Normal mg/dL (Normal) Microbiology Microbiology Date/Time Source Procedure Growth Status 10/20/24 06:15 Nose MRSA Screen - Final Complete 10/19/24 07:15 Blood Blood Culture - Preliminary NO GROWTH AFTER 72 HOURS OF INCUBATION. Resulted 10/19/24 01:08 Voided Urine Urine Culture - Final Complete Labs and/or images reviewed: Labs reviewed by me Assessment/Plan Assessment/Plan Acute hypoxic respiratory failure likely due to pneumonia Community-acquired pneumonia likely ?Gram-negative ?Atypical bacteria ?viral ? Acute exacerbation of heart failure with preserved ejection fraction UTI ? Asymptomatic bacteriuria H/o hypertension H/o hydrocephalus H/o BPH ?Prostate cancer Chest x-ray shows suspected left lower lobe opacity increased pulmonary vascular congestion with suspected interstitial edema Chest ultrasound did not report any pleural effusion bilaterally Urine bacteria culture shows growth of ESBL E coli PSA 10.68 Plan - on oxygen via nasal cannula at 2 liter/minute. - IV antibiotics meropenem and azithromycin - DuoNebs ipratropium and levalbuterol q.6 hours - amlodipine 5 mg started for high blood pressure, will up titrate as needed - Continue furosemide IV 20 mg daily - on telemetry - patient was in the Urology outpatient clinic for workup of prostate cancer - patient has a Ram's catheter, changes every 1 month with the Urology - physical therapy evaluation - incentive spirometry Patient was tried to wean of oxygen but he desaturated to 88% on room air. Continuing oxygen via nasal cannula at 1-2 liters/minute. ABG on room air shows pO2 57. The patient did not qualify for home oxygen. Re-evaluation tomorrow Plan discussed with: Patient Date of Service: Oct 23, 2024 Billing Provider: QUINN DESOUZA MD Common Visit Codes: [id number] INP/OBS CARE(HIGH) QUINN DESOUZA MD Oct 23, 2024 22:37
[2024-10-24] VITALS (16 sets, daily range): BP systolic 116–145; BP diastolic 70–86; PULSE 77–100; RESP 13–18; TEMP 97.8–98.4; O2SAT 92–100
[2024-10-24] MEDS: FUROSEMIDE 40 MG/4 ML VIAL IV SCH (08:15)
[2024-10-24 10:16] LABS: Basophils # (auto) 0 10 ^3/uL (0-0.2); Basophils % (auto) 0.1 % (0.0-2.0); Eosinophils # (auto) 0.1 10 ^3/uL (0-0.8); Eosinophils % (auto) 0.5 % (0.0-7.0); Hematocrit 47.8 % (41.0-53.0); Hemoglobin 15.8 g/dL (13.5-17.5); Lymphocytes # (auto) 1.6 10 ^3/uL (0.4-5.4); Lymphocytes % (auto) 7.2 % (10.0-50.0); Mean Corpuscular Hgb Conc. 33.1 g/dL (32.0-36.0); Mean Corpuscular Volume 90.7 fL (80.0-100.0); Neutrophils # (auto) 18.4 10 ^3/uL (1.6-8.6); Neutrophils % (auto) 83.2 % (37.0-80.0); Platelet Count (auto) 376 10^3/uL (140-450); Red Blood Cells 5.27 10^6/uL (4.5-5.90); Red Cell Distribution Width 14.4 % (11.8-14.3); White Blood Cell 22.1 10^3/uL (4.4-10.8)
[2024-10-24 10:26] LABS: Chloride 99 mmol/L (98-107); Potassium 3.8 mmol/L (3.5-5.1); Sodium 137 mmol/L (136-145)
[2024-10-24 10:27] LABS: Anion Gap 9 (5-15); Calcium 9.8 mg/dL (8.7-10.4); Carbon Dioxide 29 mmol/L (20-31)
[2024-10-24 10:32] LABS: BUN/Creatinine Ratio 22.1 (10.0-20.0); Blood Urea Nitrogen 23 mg/dL (9-23); Glucose 179 mg/dL (74-106)
[2024-10-24] MEDS: LACTULOSE 20Gm/30ML SOLN PO ONE (14:10)
--- NOTE | 2024-10-24 14:58 | DVHPNRES ---
Progress Note Date Seen: Oct 24, 2024 Resident Creating Document: JHJuleeJCALVIN Nash RESIDENT Medical Necessity Reason Pt with a Central, PICC or Fol: Yes The following are medically ne: Ram Catheter Subjective Review of Systems patient feels better with improved breathing and no respiratory distress, O2 requirement has decreased but still O2 could not be weaned off. Denied abdominal pain, nausea, vomiting Patient reported that he has not had a bowel movement since last 3-4 days, lactulose was given Objective vital signs Vital Sign Date Time Temp Pulse Resp B/P (MAP) Pulse Ox O2 Delivery O2 Flow Rate FiO2 10/24/24 12:39 98.1 98 18 122/70 (87) 93 98.1 10/24/24 11:00 Nasal Cannula 3.0 10/24/24 11:00 32 Total Intake and Output 10/23/24 10/23/24 10/24/24 15:00 23:00 07:00 Intake Total 50 ml 770 ml 450 ml Output Total 810 ml 250 ml Balance 50 ml -40 ml 200 ml medications Current Medications Medications Dose Ordered Sig/Dominic Route Start Time Stop Time Status Last Admin Dose Admin Ipratropium [place] 0.5 mg Q6HR NEB 10/19/24 06:00 10/24/24 11:00 0.5 MG Docusate Sodium 100 mg DAILYPRN PRN PO 10/19/24 05:15 Amlodipine Besylate 5 mg DAILY PO 10/19/24 10:00 10/24/24 07:55 5 MG Levalbuterol HCl 1.25 mg Q6HR NEB 10/20/24 00:00 10/24/24 11:00 1.25 MG Azithromycin 500 mg DAILY PO 10/21/24 10:00 10/24/24 07:55 500 MG Sennosides 17.2 mg QHSP PRN PO 10/20/24 15:45 Meropenem 50 ml @ 17 mls/hr Q8H IV 10/22/24 01:00 10/24/24 07:57 17 MLS/HR Furosemide 40 mg DAILY IV 10/24/24 10:00 10/24/24 08:15 40 MG Examination Constitutional: Patient was alert and oriented to time, place and person and does not appear to be in acute respiratory distress while on oxygen. Gen - no pallor, no icterus, no cyanosis, no clubbing, no LAD, no edema . Skin - Patients skin is warm and dry. HEENT - normocephalic, atraumatic, dry mucous membranes. Neck - full ROM, no LAD, no JVD Pulmonary - B/L e vesicular breath sounds with a very minimal crackles in the lower lobes , no wheezing. cardiovascular - normal S1,S2 heard. no murmurs heard. GI - soft abdomen without tenderness to palpation. no hepatospleenomegaly. Bowel sounds normoactive Neurological - Bilateral upper extremity strength 4/5, bilateral lower extremity strength 4/5, no facial droop, normal speech, no tremor, no sensory deficiets. laboratory and microbiology Laboratory Tests 10/24/24 09:54 Test 10/24/24 09:54 Range/Units Serum Glucose 179 H 74-106 mg/dL Microbiology Date/Time Source Procedure Growth Status 10/20/24 06:15 Nose MRSA Screen - Final Complete 10/19/24 07:15 Blood Blood Culture - Final NO GROWTH AFTER 5 DAYS OF INCUBATION. Complete 10/19/24 01:08 Voided Urine Urine Culture - Final Complete Problem List/Assessment/Plan Problem List/Assessment/Plan Assessment Acute hypoxic respiratory failure likely due to pneumonia Community-acquired pneumonia likely ?Gram-negative ?Atypical bacteria ?viral ? Acute exacerbation of heart failure with preserved ejection fraction UTI ? Asymptomatic bacteriuria H/o hypertension H/o hydrocephalus H/o BPH ?Prostate cancer Chest x-ray shows suspected left lower lobe opacity increased pulmonary vascular congestion with suspected interstitial edema Chest ultrasound did not report any pleural effusion bilaterally Urine bacteria culture shows growth of ESBL E coli PSA 10.68 Plan - on oxygen via nasal cannula at 2 liter/minute - IV antibiotics meropenem and azithromycin - DuoNebs ipratropium and levalbuterol q.6 hours - amlodipine 5 mg started for high blood pressure, will up titrate as needed - furosemide IV 40 mg daily - on telemetry - patient was in the Urology outpatient clinic for workup of prostate cancer - patient has a Ram's catheter, changes every 1 month with the Urology - physical therapy evaluation - incentive spirometry According to the ABG patient does not qualify for home oxygen and will be tried to wean of oxygen gradually today. Encouraged to use the incentive spirometer Lactulose for constipation given WBC count increased and will be monitored tomorrow patient continued on antibiotics. ABG on room air to be repeated in the morning tomorrow. Goals of care discussed with the patient and the caregivers for over 23 minutes. Full code Plan discussed with Dr. Desouza Plan discussed with: Patient, Other (Caregivers) My Orders My Orders Orders - CALVIN NAGY Procedure Category Date Status Time Furosemide Injection PHA 10/24/24 In Process (Lasix Injection) 10:00 Communication Order ORDERS 10/24/24 Transmitted 13:54 Date of Service: Oct 24, 2024 Billing Provider: QUINN DESOUZA MD Common Visit Codes: [id number] INP/OBS CARE(HIGH) CALVIN NAGY Oct 24, 2024 14:58 QUINN DESOUZA MD Oct 24, 2024 21:53
[2024-10-25] VITALS (15 sets, daily range): BP systolic 112–138; BP diastolic 73–85; PULSE 80–103; RESP 16–18; TEMP 97.5–98.5; O2SAT 92–100
[2024-10-25] MEDS: LACTULOSE 20Gm/30ML SOLN PO PRN (11:21)
[2024-10-25] MEDS: DOCUSATE SOD 100 MG CAP PO PRN (11:22)
[2024-10-25 14:30] LABS: Basophils # (auto) 0 10 ^3/uL (0-0.2); Basophils % (auto) 0.2 % (0.0-2.0); Eosinophils # (auto) 0.1 10 ^3/uL (0-0.8); Eosinophils % (auto) 0.5 % (0.0-7.0); Hematocrit 47.8 % (41.0-53.0); Hemoglobin 16.1 g/dL (13.5-17.5); Lymphocytes % (auto) 8.1 % (10.0-50.0); Mean Corpuscular Hemoglobin 30.8 pg (28.0-32.0); Mean Corpuscular Hgb Conc. 33.7 g/dL (32.0-36.0); Mean Corpuscular Volume 91.4 fL (80.0-100.0); Monocytes # (auto) 2.9 10 ^3/uL (0-1.3); Monocytes % (auto) 11.7 % (0.0-12.0); Neutrophils # (auto) 19.6 10 ^3/uL (1.6-8.6); Neutrophils % (auto) 79.5 % (37.0-80.0); Platelet Count (auto) 383 10^3/uL (140-450); Red Blood Cells 5.22 10^6/uL (4.5-5.90); Red Cell Distribution Width 14.2 % (11.8-14.3); White Blood Cell 24.6 10^3/uL (4.4-10.8)
[2024-10-25 14:41] LABS: Chloride 98 mmol/L (98-107); Potassium 4.1 mmol/L (3.5-5.1); Sodium 136 mmol/L (136-145)
[2024-10-25 14:42] LABS: Anion Gap 7 (5-15); Calcium 9.9 mg/dL (8.7-10.4); Carbon Dioxide 31 mmol/L (20-31)
[2024-10-25 14:47] LABS: BUN/Creatinine Ratio 19.8 (10.0-20.0); Blood Urea Nitrogen 18 mg/dL (9-23); Glucose 94 mg/dL (74-106)
[2024-10-25] MEDS ORDERED: LACTULOSE 20Gm/30ML SOLN PO ONE (15:30)
[2024-10-25] MEDS: POLYETHYLENE GLYCOL 17 GM PWDR PO ONE (16:54)
--- NOTE | 2024-10-25 19:44 | DVHPNRES ---
Progress Note Date Seen: Oct 25, 2024 Resident Creating Document: JHCALVIN VILLAR RESIDENT Medical Necessity Reason Pt with a Central, PICC or Fol: Yes The following are medically ne: Ram Catheter Subjective Review of Systems patient feels better with improved breathing and no respiratory distress, patient was weaned of oxygen with a saturation maintaining more than 90% Denied abdominal pain, nausea, vomiting Patient reported that he has not had a bowel movement since last 3-4 days, MiraLax given Objective vital signs Vital Sign Date Time Temp Pulse Resp B/P (MAP) Pulse Ox O2 Delivery O2 Flow Rate FiO2 10/25/24 18:42 84 16 98 10/25/24 16:00 98.5 132/82 (99) 98.5 10/25/24 10:00 Nasal Cannula 2.0 10/25/24 10:00 28 Total Intake and Output 10/24/24 10/24/24 10/25/24 15:00 23:00 07:00 Intake Total 50 ml 896 ml 370 ml Output Total 50 ml 375 ml Balance 50 ml 846 ml -5 ml medications Current Medications Medications Dose Ordered Sig/Dominic Route Start Time Stop Time Status Last Admin Dose Admin Ipratropium [place] 0.5 mg Q6HR NEB 10/19/24 06:00 10/25/24 18:41 0.5 MG Docusate Sodium 100 mg DAILYPRN PRN PO 10/19/24 05:15 10/25/24 11:22 100 MG Amlodipine Besylate 5 mg DAILY PO 10/19/24 10:00 10/25/24 09:18 5 MG Levalbuterol HCl 1.25 mg Q6HR NEB 10/20/24 00:00 10/25/24 18:41 1.25 MG Azithromycin 500 mg DAILY PO 10/21/24 10:00 10/25/24 09:18 500 MG Sennosides 17.2 mg QHSP PRN PO 10/20/24 15:45 Meropenem 50 ml @ 17 mls/hr Q8H IV 10/22/24 01:00 10/25/24 18:02 17 MLS/HR Furosemide 40 mg DAILY IV 10/24/24 10:00 10/25/24 09:18 40 MG Lactulose 15 ml DAILYPRN PRN PO 10/24/24 15:00 10/25/24 11:21 15 ML Examination Constitutional: Patient was alert and oriented to time, place and person and does not appear to be in acute respiratory distress while off oxygen. Gen - no pallor, no icterus, no cyanosis, no clubbing, no LAD, no edema . Skin - Patients skin is warm and dry. HEENT - normocephalic, atraumatic, dry mucous membranes. Neck - full ROM, no LAD, no JVD Pulmonary - B/L e vesicular breath sounds, no crackles , no wheezing. cardiovascular - normal S1,S2 heard. no murmurs heard. GI - soft abdomen without tenderness to palpation. no hepatospleenomegaly. Bowel sounds normoactive Neurological - Bilateral upper extremity strength 4/5, bilateral lower extremity strength 4/5, no facial droop, normal speech, no tremor, no sensory deficiets. laboratory and microbiology Laboratory Tests 10/25/24 13:50 Test 10/25/24 13:50 Range/Units Serum Glucose 94 74-106 mg/dL Microbiology Date/Time Source Procedure Growth Status 10/20/24 06:15 Nose MRSA Screen - Final Complete 10/19/24 07:15 Blood Blood Culture - Final NO GROWTH AFTER 5 DAYS OF INCUBATION. Complete 10/19/24 01:08 Voided Urine Urine Culture - Final Complete Problem List/Assessment/Plan Problem List/Assessment/Plan Assessment Acute hypoxic respiratory failure likely due to pneumonia Community-acquired pneumonia likely ?Gram-negative ?Atypical bacteria ?viral ? Acute exacerbation of heart failure with preserved ejection fraction UTI ? Asymptomatic bacteriuria H/o hypertension H/o hydrocephalus H/o BPH ?Prostate cancer Chest x-ray shows suspected left lower lobe opacity increased pulmonary vascular congestion with suspected interstitial edema Chest ultrasound did not report any pleural effusion bilaterally Urine bacteria culture shows growth of ESBL E coli PSA 10.68 Plan - on room air - IV antibiotics meropenem and azithromycin - DuoNebs ipratropium and levalbuterol q.6 hours - amlodipine 5 mg started for high blood pressure, will up titrate as needed - furosemide IV 40 mg daily - on telemetry - patient was in the Urology outpatient clinic for workup of prostate cancer - patient has a Ram's catheter, changes every 1 month with the Urology - physical therapy evaluation - incentive spirometry Patient weaned off oxygen today Encouraged to use the incentive spirometer Lactulose and MiraLax for constipation given WBC count increased and will be monitored tomorrow patient continued on antibiotics. Goals of care discussed with the patient and the caregivers for over 23 minutes. Full code Plan discussed with Dr. Valles Plan discussed with: Patient, Other (Caregiver (ashley)) Date of Service: Oct 25, 2024 Billing Provider: MEL VALLES MD Common Visit Codes: [id number] INP/OBS CARE(HIGH) CALVIN NAGY RESIDENT Oct 25, 2024 19:44 MEL VALLES MD Oct 27, 2024 16:34
[2024-10-26] VITALS (12 sets, daily range): BP systolic 118–121; BP diastolic 60–79; PULSE 80–104; RESP 16–18; TEMP 36.7; O2SAT 91–98
[2024-10-26 06:18] LABS: Basophils # (auto) 0 10 ^3/uL (0-0.2); Basophils % (auto) 0.1 % (0.0-2.0); Eosinophils # (auto) 0.2 10 ^3/uL (0-0.8); Eosinophils % (auto) 0.8 % (0.0-7.0); Hematocrit 46.4 % (41.0-53.0); Hemoglobin 15.6 g/dL (13.5-17.5); Lymphocytes # (auto) 2.6 10 ^3/uL (0.4-5.4); Lymphocytes % (auto) 12.3 % (10.0-50.0); Mean Corpuscular Hemoglobin 30.7 pg (28.0-32.0); Mean Corpuscular Hgb Conc. 33.5 g/dL (32.0-36.0); Mean Corpuscular Volume 91.5 fL (80.0-100.0); Monocytes # (auto) 2.9 10 ^3/uL (0-1.3); Neutrophils # (auto) 15.1 10 ^3/uL (1.6-8.6); Neutrophils % (auto) 72.8 % (37.0-80.0); Platelet Count (auto) 338 10^3/uL (140-450); Red Blood Cells 5.07 10^6/uL (4.5-5.90); Red Cell Distribution Width 14.2 % (11.8-14.3); White Blood Cell 20.8 10^3/uL (4.4-10.8)
[2024-10-26 06:29] LABS: Anion Gap 9 (5-15); Calcium 10.3 mg/dL (8.7-10.4); Sodium 139 mmol/L (136-145)
[2024-10-26 06:35] LABS: BUN/Creatinine Ratio 21.8 (10.0-20.0); Blood Urea Nitrogen 19 mg/dL (9-23)
[2024-10-26 06:49] LABS: Carbon Dioxide 33 mmol/L (20-31); Chloride 97 mmol/L (98-107); Glucose 109 mg/dL (74-106)
--- NOTE | 2024-10-26 08:30 | DVH ---
CHEST RADIOGRAPH Indication: progress Technique: Single frontal view of the chest was obtained Comparison: XY CHEST XRAY 1 VIEW on DOS: 10/21/24, XY CHEST PORTABLE on DOS: 10/19/24, XY CHEST PORTABL E on DOS: 08/17/24 FINDINGS: Lines and Tubes: [employer] shunt catheter right hemithorax. Lungs: No focal consolidation. Pleura: No effusion. No pneumothorax. Cardiomediastinal contours: Unremarkable Bones: No acute osseous abnormality. IMPRESSION: No acute cardiopulmonary disease.
[2024-10-26] MEDS: POLYETHYLENE GLYCOL 17 GM PWDR PO ONE (09:15)
[2024-10-26] MEDS ORDERED: POLY335015 PO (17:20)
--- NOTE | 2024-10-26 17:21 | DVHDSRES ---
Discharge Summary Date of Admission Resident Creating Document: CALVIN NAGY RESIDENT Oct 19, 2024 at 05:08 Date of Discharge: Oct 26, 2024 Admitting Diagnosis Acute metabolic encephalopathy, likely due to pneumonia Acute hypoxic respiratory failure, likely demand pneumonia Pneumonia, likely due to Gram-positive Gram-negative/bacteria viral History of hypertension History of hydrocephalus Possible prostate cancer, biopsy pending Wounds: none Labs/Diagnostic Data: Laboratory Results Test 10/26/24 05:14 10/22/24 15:34 10/19/24 04:26 10/19/24 01:41 White Blood Count 20.8 10^3/uL (4.4-10.8) Red Blood Count 5.07 10^6/uL (4.5-5.90) Hemoglobin 15.6 g/dL (13.5-17.5) Hematocrit 46.4 % (41.0-53.0) Mean Corpuscular Volume 91.5 fL (80.0-100.0) Mean Corpuscular Hemoglobin 30.7 pg (28.0-32.0) Mean Corpuscular Hemoglobin Concent 33.5 g/dL (32.0-36.0) Red Cell Distribution Width 14.2 % (11.8-14.3) Platelet Count 338 10^3/uL (140-450) Mean Platelet Volume 8.2 fL (6.9-10.8) Neutrophils (%) (Auto) 72.8 % (37.0-80.0) Lymphocytes (%) (Auto) 12.3 % (10.0-50.0) Monocytes (%) (Auto) 14.0 % (0.0-12.0) Eosinophils (%) (Auto) 0.8 % (0.0-7.0) Basophils (%) (Auto) 0.1 % (0.0-2.0) Neutrophils # (Auto) 15.1 10 ^3/uL (1.6-8.6) Lymphocytes # (Auto) 2.6 10 ^3/uL (0.4-5.4) Monocytes # (Auto) 2.9 10 ^3/uL (0-1.3) Eosinophils # (Auto) 0.2 10 ^3/uL (0-0.8) Basophils # (Auto) 0 10 ^3/uL (0-0.2) Nucleated Red Blood Cells 0.0 % Sodium Level 139 mmol/L (136-145) Potassium Level 4.0 mmol/L (3.5-5.1) Chloride Level 97 mmol/L (98-107) Carbon Dioxide Level 33 mmol/L (20-31) Anion Gap 9 (5-15) Blood Urea Nitrogen 19 mg/dL (9-23) Creatinine 0.87 mg/dL (0.700-1.30) Glomerular Filtration Rate Calc 88 mL/min (>90) BUN/Creatinine Ratio 21.8 (10.0-20.0) Serum Glucose 109 mg/dL (74-106) Calcium Level 10.3 mg/dL (8.7-10.4) Blood Gas Specimen Type Arterial Blood Gas Sample Site Left radial Blood Gas Patient Temperature 37.0 Arterial Blood Date Drawn [id number] Arterial Blood pH 7.488 (7.350-7.450) Arterial Blood Partial Pressure CO2 37.5 mmHg (35.0-48.0) Arterial Blood Partial Pressure O2 57.7 mmHg (83.0-108.0) Arterial Blood HCO3 27.8 mmol/L (21.0-28.0) Arterial Blood Oxygen Saturation 90.2 % (94.0-98.0) Arterial Blood Base Excess 4.4 mmol/L (-2.0-3.0) Arterial Blood Oxyhemoglobin 89.5 % (94.0-98.0) Arterial Blood Carboxyhemoglobin 0.4 % (0.5-1.5) Arterial Blood Methemoglobin 0.4 % (0.0-1.5) Deshawn Test Yes Blood Gas Total Hemoglobin 16.50 g/dL (13.5-17.5) Blood Gas Liter Flow 0.00 Blood Gas Modality Room air FiO2 % 21.0 Troponin I High Sensitivity 6 ng/L (</=54) Influenza Type A Antigen Negative (Negative) Influenza Type B Antigen Negative (Negative) SARS-CoV-2 Antigen (Rapid) Negative (NEGATIVE) Test 10/19/24 01:30 10/19/24 01:23 10/19/24 01:08 POC Glucose 89 mg/dl (70-106) Lactic Acid Level 1.1 mmol/L (0.4-2.0) Total Bilirubin 0.4 mg/dL (0.2-1.0) Aspartate Amino Transferase (AST) 24 U/L (13-40) Alanine Aminotransferase (ALT) 14 U/L (7-40) Alkaline Phosphatase 88 U/L (46-116) B-Type Natriuretic Peptide 15.44 pg/mL (0-100) Total Protein 7.0 g/dL (5.7-8.2) Albumin 4.1 g/dL (3.2-4.8) Urine Color Light-yellow (Yellow) Urine Clarity Clear (Clear) Urine pH 6.5 (5.0-9.0) Urine Specific [place] 1.010 (1.001-1.035) Urine Protein Negative (Negative) Urine Ketones Negative (Negative) Urine Blood 1+ /uL (Negative) Urine Nitrite Negative (Negative) Urine Bilirubin Negative (Negative) Urine Urobilinogen Normal mg/dL (Negative) Urine Leukocyte Esterase 1+ /uL (Negative) Urine RBC 8 /hpf (0 - 3) Urine WBC 2 /hpf (0 - 3) Urine Squamous Epithelial Cells None seen /hpf (<5) Urine Bacteria None seen /hpf (None Seen) Urine Glucose Normal mg/dL (Normal) Other Laboratory Tests 10/26/24 05:14 Brief Hx & Hospital Course: Patient 79-year-old male with a past medical history of BPH/?prostate cancer, hydrocephalus with a [employer] shunt, recurrent UTI, hypertension came to the ED chief complaint of worsening shortness of breath. Patient reports that since the last 3-4 days he started having cough associated with yellowish white sputum and feeling feverish, no associated blood in the sputum. Patient reported the cough started worsening and yesterday he was coughing a lot associated with worsening shortness of breath. Patient's caregiver also reported that his level of consciousness was also altered following which he called the 911. Patient denied chest pain, abdominal pain, nausea, vomiting. Past medical history: BPH/?prostate cancer, hydrocephalus with a [employer] shunt, recurrent UTI, hypertension Social history: Patient was a ex-smoker and lives at home with a caregiver Home medications: Amlodipine 10 mg, benazepril 40 mg, tamsulosin 0.4 mg, pantoprazole, finasteride 5 mg Hospital course Patient was brought to the hospital with a chief complaint of shortness of breath. Patient was initially placed on oxygen via nasal cannula and with the suspicion of pneumonia patient was started on ceftriaxone and azithromycin. Patient was seen in the clinic about a week prior to presentation in the ED when bacterial culture was sent which grew ESBL E coli more than [id number] colony- forming units which was sensitive to meropenem. Ceftriaxone IV was switched to meropenem. Patient was put on scheduled breathing treatments with albuterol and ipratropium nebulizer. Patient was evaluated by Physical therapy on a daily basis. His oxygen requirements decreased over the course of hospital stay but patient could not be weaned off oxygen initially and from his ABG he was not qualifying for home oxygen. Patient was started on incentive spirometry and was gradually weaned of oxygen. Patient was stable without oxygen for over 24 hours with a SpO2 maintaining above 92%. Repeat urine culture shows growth of less than [id number] colony-forming units/ml. Patient was discharged in stable condition to home with Ram's catheter. Discharge plan Discharged to home in stable condition with Ram's catheter. Follow up: Follow up in the clinic with the PCP Medications: Patient continued on amlodipine 5 mg but instructions provided to the caregivers to only give benazepril if SBP was then 150 mmHg. Continued on home medications Consults/Reason for consult none Operations or Procedures none Condition at Discharge: Good Final Diagnosis/Problems List Acute hypoxic respiratory failure likely due to pneumonia Community-acquired pneumonia likely ?Gram-negative ?Atypical bacteria ?viral ? Acute exacerbation of heart failure with preserved ejection fraction UTI ? Asymptomatic bacteriuria H/o hypertension H/o hydrocephalus H/o BPH ?Prostate cancer Sepsis likely d/t pneumonia Discharge Disposition: Home Discharge Instruct/Medications Diet: Cardiac 2g Na,low cholest Activity: No Restrictions, As Tolerated Follow Up/Referral: Follow up in the PCP clinic with / in one week Follow up in the urology clinic in one week with Medications: as per EMR Discharge Statement: "Patient was advised to return to the ER or call 911 if any headaches, dizziness, shortness of breath, chest pain, abdominal pain, bleeding, fevers, or worsening of medical condition. Patient was counseled about treatment plan, medications, possible side effects, patientverbalized understanding. All questions were answered to the best of my ability. This discharge took greater then 30 minutes in planning, reviewing documentation, counseling the patient, and discussing with other team members." ASSESSMENT ASSESSMENT Assessment Acute hypoxic respiratory failure likely due to pneumonia Community-acquired pneumonia likely ?Gram-negative ?Atypical bacteria ?viral ? Acute exacerbation of heart failure with preserved ejection fraction UTI ? Asymptomatic bacteriuria H/o hypertension H/o hydrocephalus H/o BPH ?Prostate cancer Date of Service: Oct 26, 2024 Billing Provider: MEL COLLINS MD Common Visit Codes: [id number] DISCH DAY >30min CALVIN NAGY RESIDENT Oct 26, 2024 17:21 MEL COLLINS MD Oct 27, 2024 16:35
== END 2024-10-26 16:13 | disposition home or self-care (01) | DRG 871 ==
LOC: EDUNIT# 00:37 → ER 00:37 → EDBD 00:37 → OVERFLOW 05:08 → CENTRAL 21:53 → TELE-CENTR 10-20 04:07 → CENTRAL 10-21 01:48 → WEST WING 10-24 22:57
PROVIDERS: ADMIT Student in an Organized Health Care Education/Training Program; ATTEND Student in an Organized Health Care Education/Training Program
DX: A41.59 Other Gram-negative sepsis (principal); G93.41 Metabolic encephalopathy; I50.33 Acute on chronic diastolic (congestive) heart failure; J15.69 Pneumonia due to other Gram-negative bacteria; J96.01 Acute respiratory failure with hypoxia; J12.9 Viral pneumonia, unspecified; N39.0 Urinary tract infection, site not specified; I11.0 Hypertensive heart disease with heart failure; Z20.822 Contact with and (suspected) exposure to COVID-19; N40.0 Benign prostatic hyperplasia without lower urinary tract symptoms; Z85.46 Personal history of malignant neoplasm of prostate; Z98.2 Presence of cerebrospinal fluid drainage device; Z79.899 Other long term (current) drug therapy
CPT/HCPCS: 36415; 36600; 71045; 76604; 80048; 80053; 81001; 82805; 82962; 83605; 83880; 84484; 85025; 87040; 87081; 87086; 87426; 87804; 93005; 94640; 96361; 96365; 96375; 97110; 97116; 97163; 97530; G0378; J2185

== ENCOUNTER 2024-11-07 23:04 | Emergency (ER) | payer MEDICARE ==
[~2024-11-07] VITALS: Ht 167.6 cm; Wt 65.9 kg
[~2024-11-07 23:04] MED LIST changes: +BENA40TA83 PO; -CEFP200T15 PO; +MIRT-94 PO; +PANT40TA2 PO; +POLY335015 PO; +TAMS0.4C39 PO; +TRAZ-227 PO
--- NOTE | 2024-11-08 01:02 | ED.PDOC ---
History of Present Illness HPI Comments 79 y/o M is BIBA for c/o urine retention, today. Per EMS report, patient's rpg developer called, endorsing on patient on having constant need to urinate and being unable to with his catheter, lately, that he had placed, recently, for unknown duration of time in addition to concern for possible UTI. At time of as sessment, patient is a poor historian and only reiterates concerns regarding on having a constant sensation that his bladder is full amidst catheter still draining along with some mild lower back pain. He denies having groin pain, hematuria, fever, chills, nausea, vomiting, or other associated symptoms or modifiers at this time. Chief Complaint: Urinary Time Seen by MD: 00:25 Primary Care Provider: Cashk Reviewed Notes: Nurses Notes, Tandem Operator Notes, Medications, Allergies Allergies: Coded Allergies: NO KNOWN ALLERGIES (Unverified , 08/17/24) Home Meds Active Scripts Polyethylene Glycol 3350 (Miralax) 17 Gm Pow, 17 GM PO DAILY PRN for 30 Days, #30 POW 0 Refills Prov:CALVIN NAGY RESIDENT 10/26/24 Amlodipine Besylate (NORVASC TABLET) 5 Mg Tb, 5 MG PO DAILY for 30 Days, #30 TAB Prov:MEL COLLINS MD 08/19/24 Reported Medications Benazepril HCl (Benazepril Hydrochloride) 40 Mg Tab, 40 MG PO DAILY, TAB 10/19/24 Pantoprazole Sodium Sesquihydr (Protonix) 40 Mg Tab, 40 MG PO QAM, #30 TAB 10/19/24 Mirtazapine (REMERON) 30 Mg Tab, 15 MG PO DAILY, TAB 10/19/24 Trazodone Hcl (Trazodone Hcl) 50 Mg Tab, 50 MG PO HS, TAB 10/19/24 Tamsulosin Hcl (Tamsulosin Hcl) 0.4 Mg Cap, 0.4 MG PO DAILY, CAP 10/19/24 Information Source: Patient, Emergency Med Personnel Mode of Arrival: EMS Severity: Moderate Timing: Hours Duration: Since onset Prehospital treatment: 12 Lead EKG, Accucheck, Tile Inspector Review of Systems: REVIEW OF SYSTEMS: No fever, no chills, or fatigue HEENT: No sore throat, no earache, no congestion, no neck pain. Cardiac: No chest pain. No palpitations. Lungs: No shortness of breath, no cough. GI: No nausea, no vomiting, no diarrhea, no constipation, no abdominal pain : Urine retention, no dysuria, frequency, or urgency. No hematuria. Musculoskeletal: Lower back pain, no joint pain , no joint swelling, no extremity edema. Skin: No rash, no itching. Neuro: No headache, no dizziness, no weakness Vital Signs Vital Signs Date Time Temp Pulse Resp B/P (MAP) Pulse Ox O2 Delivery O2 Flow Rate FiO2 11/08/24 05:55 105 16 93 Room Air* 0 21 11/08/24 05:50 98.8 125/80 (95) 98.8 Physical Exam General: Awake, alert and oriented. No acute distress. Skin: Skin in warm, dry and intact. Appropriate color for ethnicity. HEENT: The head is normocephalic and atraumatic. Conjunctivae are clear without exudates or hemorrhage. Sclera is non-icteric. EOM are intact. No signs of nystagmus. Eyelids are normal in appearance without swelling or lesions. Oral mucosa is pink and moist Neck: The neck is supple with normal range of motion. No JVD. Cardiac: Heart rate and rhythm are normal. No murmurs, gallops, or rubs are auscultated. Respiratory: No signs of respiratory distress. Lung sounds are clear in all lobes bilaterally without rales, rhonchi, or wheezes. Genitourinary: Ram catheter in place, no irritation around meatus Abdominal: Abdomen is soft, non-tender without distention. Bowel sounds are present and normoactive in all four quadrants. Extremities: Upper and lower extremities are atraumatic in appearance without deformity or edema. Neurological: The patient is awake, alert and oriented to person, place, and time with normal speech. Speech is clear. There is no facial asymmetry. Psychiatric: Appropriate mood and affect. Good judgement and insight. No visual or auditory hallucinations. Past Medical History PAST MEDICAL HISTORY: Cancer (prostate ), HTN, UTI'S Past Medical History (Other): hydrocephalus, PNA, acute respiratory failure and metabolic encephalopathy Surgical History (Other): Ram catheter Family History Family History: Pt Confused Social History Smoker: Non-Smoker Alcohol: Denies ETOH Use Drugs: Denies Drug Use Lives In: Home, Assisted Care Was a procedure done? Was a procedure done?: No EKG EKG : Pulse Rate (adult): 118 [place]: Normal Cardiac Rhythm: ST Hypertrophy: None ST: Normal Comments left posterior fascicular block, no STEMI Differential Dx Considerations may include: UTI, catheter obstruction, viral syndrome X-Ray, Labs, Meds, VS Vital Signs Date Time Temp Pulse Resp B/P (MAP) Pulse Ox O2 Delivery O2 Flow Rate FiO2 11/08/24 05:55 105 16 93 Room Air* 0 21 11/08/24 05:50 98.8 100 14 125/80 (95) 93 98.8 11/08/24 01:02 118 11/07/24 23:30 98.3 61 20 179/108 (131) 97 11/07/24 23:13 118 Lab Test 11/08/24 04:55 Range/Units Urine Color Light-yellow Yellow Urine Clarity Clear Clear Urine pH 7.0 5.0-9.0 Urine Specific [place] 1.013 1.001-1.035 Urine Protein Trace H Negative Urine Ketones Negative Negative Urine Blood 3+ H Negative /uL Urine Nitrite Negative Negative Urine Bilirubin Negative Negative Urine Urobilinogen Normal Negative mg/dL Urine Leukocyte Esterase Negative Negative /uL Urine RBC 130 0 - 3 /hpf Urine Microscopic WBC 5 H 0-3 /HPF Urine Squamous Epithelial Cells Few <5 /hpf Urine Bacteria None seen None Seen /hpf Urine Mucus Few None Seen Urine Glucose Normal Normal mg/dL Time of 1ST Reevaluation: 00:55 Reevaluation 1ST: Unchanged Patient Education/Counseling: Diagnosis, Treatment Family Education/Counseling: No Family Present Departure 1 Departure Time of Disposition: 05:41 Impression: Primary Impression: Penile pain Additional Impressions: Low back pain Tremor Disposition: 01 HOME / SELF CARE / HOMELESS Condition: Stable Additional Instructions: ED DISCHARGE INSTRUCTIONS Instructions: Please read all instructions provided in this packet carefully. We will call you with the results of your urine test if there is any need for treatment with antibiotics. Although you have been discharged from the Emergency Department, this does not mean that you have a "clean bill of health". No definitive diagnosis for your symptoms has been made today. It is possible that you are in the process of developing a serious illness. This is why you must return to the ED without fail if any new or worsening symptoms (especially if your symptoms include chest pain, trouble breathing, abdominal pain, fever, headache, confusion, trouble seeing, or trouble walking) It is also very important that you see a primary care doctor within the next 3-5 days to follow up. If you are unable to get an appointment, return to the ED for re-evaluation. Comments 79 year old male stating he feels the urge to urinate and has lower back pain. He also reports tremor. No tremor noted during the ED observation. He is awake, alert and oriented. Urinalysis result pending. Patient felt stable for discharge home. Will call with results if antibiotics needed. Patient well-appearing, nontoxic. Advised prompt follow-up with PCP, return to the ED with any new, worsening or concerning symptoms. (Supervisor Agency Appointments Alan Webb [phone]) Critical Care Note Critical Care Time?: No Stability Stability form required: No Heart Score Heart Score: Heart Score Response (Comments) Value History N/A 0 EKG N/A 0 Age N/A 0 Risk Factors N/A 0 Troponin N/A 0 Total 0 I personally scribed for ANISH NAGY MD ([email or web address]) on 11/08/24 at 01:02. Electronically submitted by Ambrose Ramirez ([email or web address]). ANISH NAGY MD Nov 08, 2024 01:02
[2024-11-08 05:25] LABS: Urine Bacteria None Seen /hpf (None Seen)
[2024-11-08 05:50] VITALS: BP 125/80; TEMP 98.8
[2024-11-08 05:55] VITALS: PULSE 105; RESP 16; O2SAT 93
[2024-11-08 05:56] LABS: Urine Blood 3+ /uL (Negative); Urine Clarity Clear (Clear); Urine Color Light-Yellow (Yellow); Urine Mucus FEW (None Seen); Urine Protein, UAD TRACE (Negative); Urine Specific Gravity 1.013 (1.001-1.035); Urine Squamous Epithelial Cell FEW /hpf (<5); Urine Urobilinogen Normal (Negative); Urine WBC 5 /HPF (0-3)
--- NOTE | 2024-11-08 11:44 | ECG ---
[facility] Test Date: 2024-11-07 Test Time: 23:13:28 Pat Name: RAVI CARDENAS Department: ER Room: Gender: M Php Architect: : [id number] Requested By: ANISH NAGY Order Number: [id number] Reading MD: Donis Cartwright Measurements Intervals [place] Rate: 118 P: 44 FL: 198 QRS: 156 QRSD: 89 T: -11 QT: 310 QTc: 435 Interpretive Statements Sinus tachycardia Left posterior fascicular block Low voltage, precordial leads Consider anterolateral infarct Borderline T abnormalities, inferior leads Minimal ST elevation, inferior leads Electronically Signed On 11-11-2024 10:37:07 PST by Donis Cartwright Please click the below link to view image of tracing.
== END 2024-11-08 06:10 | disposition home or self-care (01) ==
LOC: EDBD 23:04 → ER 23:04
DX: N48.89 Other specified disorders of penis (principal); M54.50 Low back pain, unspecified; R25.1 Tremor, unspecified; I10 Essential (primary) hypertension; G91.9 Hydrocephalus, unspecified; J96.00 Acute respiratory failure, unspecified whether with hypoxia or hypercapnia; G93.41 Metabolic encephalopathy; Z98.890 Other specified postprocedural states; Z85.9 Personal history of malignant neoplasm, unspecified
CPT/HCPCS: 81001; 93005

== ENCOUNTER 2024-11-11 15:38 | Emergency (ER) | payer MEDICARE ==
[~2024-11-11] VITALS: Ht 170.2 cm; Wt 63.8 kg
[2024-11-11 16:15] LABS: Basophils # (auto) 0.1 10 ^3/uL (0-0.2); Basophils % (auto) 0.6 % (0.0-2.0); Eosinophils # (auto) 0.1 10 ^3/uL (0-0.8); Eosinophils % (auto) 0.3 % (0.0-7.0); Hematocrit 49.4 % (41.0-53.0); Hemoglobin 15.9 g/dL (13.5-17.5); Lymphocytes # (auto) 1.5 10 ^3/uL (0.4-5.4); Lymphocytes % (auto) 8.8 % (10.0-50.0); Mean Corpuscular Hemoglobin 29.2 pg (28.0-32.0); Mean Corpuscular Hgb Conc. 32.2 g/dL (32.0-36.0); Mean Corpuscular Volume 90.7 fL (80.0-100.0); Monocytes # (auto) 1.3 10 ^3/uL (0-1.3); Monocytes % (auto) 7.8 % (0.0-12.0); Neutrophils # (auto) 13.8 10 ^3/uL (1.6-8.6); Neutrophils % (auto) 82.5 % (37.0-80.0); Platelet Count (auto) 388 10^3/uL (140-450); Red Blood Cells 5.45 10^6/uL (4.5-5.90); Red Cell Distribution Width 14.3 % (11.8-14.3); White Blood Cell 16.8 10^3/uL (4.4-10.8)
[2024-11-11 16:29] LABS: Urine Bacteria FEW /hpf (None Seen); Urine Blood 1+ /uL (Negative); Urine Clarity Clear (Clear); Urine Color Colorless (Yellow); Urine Protein, UAD Negative (Negative); Urine Specific Gravity 1.003 (1.001-1.035); Urine Squamous Epithelial Cell FEW /hpf (<5); Urine Urobilinogen Normal (Negative); Urine WBC 3 /HPF (0-3)
[2024-11-11 16:34] LABS: Alanine Aminotransferase 21 U/L (7-40); Albumin 4.6 g/dL (3.2-4.8); Alkaline Phosphatase 104 U/L (46-116); Anion Gap 8 (5-15); Aspartate Aminotransferase 19 U/L (13-40); BUN/Creatinine Ratio 12.2 (10.0-20.0); Bilirubin, Total 0.6 mg/dL (0.2-1.0); Blood Urea Nitrogen 14 mg/dL (9-23); Carbon Dioxide 27 mmol/L (20-31); Chloride 101 mmol/L (98-107); Lipase 27 U/L (12-53); Potassium 4.4 mmol/L (3.5-5.1); Sodium 136 mmol/L (136-145); Total Protein 7.3 g/dL (5.7-8.2)
--- NOTE | 2024-11-11 16:41 | ED.PDOC ---
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 Per foxing cutting machine operator, patient received a call regarding his previous ED visit urinalysis test showing hematuria and requesting him to return to the ED for further work-up. Patient is stated to have been seen last time for multiple complaints, which included Ram catheter pain, multiple syncopal episodes, and hypertension. At time of assessment, patient denies having penile pain, fever, chills, congestion, nausea, vomiting, or other associated symptoms or modifiers at this time. Vital signs were stable at arrival Chief Complaint: Urinary Time Seen by MD: 15:50 Primary Care Provider: LILO Reviewed Notes: Nurses Notes, Medications, Allergies Allergies: Coded Allergies: NO KNOWN ALLERGIES (Unverified , 08/17/24) Home Meds Active Scripts Polyethylene Glycol 3350 (Miralax) 17 Gm Pow, 17 GM PO DAILY PRN for 30 Days, #30 POW 0 Refills Prov:CALVIN NAGY RESIDENT 10/26/24 Amlodipine Besylate (NORVASC TABLET) 5 Mg Tb, 5 MG PO DAILY for 30 Days, #30 TAB Prov:MEL COLLINS MD 08/19/24 Reported Medications Benazepril HCl (Benazepril Hydrochloride) 40 Mg Tab, 40 MG PO DAILY, TAB 10/19/24 Pantoprazole Sodium Sesquihydr (Protonix) 40 Mg Tab, 40 MG PO QAM, #30 TAB 10/19/24 Mirtazapine (REMERON) 30 Mg Tab, 15 MG PO DAILY, TAB 10/19/24 Trazodone Hcl (Trazodone Hcl) 50 Mg Tab, 50 MG PO HS, TAB 10/19/24 Tamsulosin Hcl (Tamsulosin Hcl) 0.4 Mg Cap, 0.4 MG PO DAILY, CAP 10/19/24 Information Source: Patient, Relative Mode of Arrival: Wheelchair Severity: Moderate Timing: Hours Duration: Since onset Prehospital treatment: None Past Medical History PAST MEDICAL HISTORY: Cancer (prostate), HTN, UTI'S Past Medical History (Other): hydrocephalus, PNA, acute respiratory failure and metabolic encephalopathy Surgical History: Denies all surgeries Surgical History (Other): Ram catheter Family History Family History: Pt Confused Social History Smoker: Non-Smoker Alcohol: Denies ETOH Use Drugs: Denies Drug Use Lives In: Home, Assisted Care Constitutional: denies: chills, diaphoresis, fatigue, fever, malaise, sweats, weakness, others EENTM: denies: blurred vision, double vision, ear bleeding, ear discharge, ear drainage, ear pain, ear ringing, eye pain, eye redness, hearing loss, mouth pain, mouth swelling, nasal discharge, nose bleeding, nose congestion, nose pain, photophobia, tearing, throat pain, throat swelling, voice changes, others Respiratory: denies: cough, hemoptysis, orthopnea, SOB at rest, shortness of breath, SOB with excertion, stridor, wheezing, others Cardiovascular: denies: chest pain, dizzy spells, diaphoresis, Dyspnea on exertion, edema, irregular heart beat, left arm pain, lightheadedness, palpitations, PND, syncope, others Gastrointestinal: denies: abdomen distended, abdominal pain, blood streaked bowels, constipated, diarrhea, dysphagia, difficulty swallowing, hematemesis, melena, nausea, poor appetite, poor fluid intake, rectal bleeding, rectal pain, vomiting, others Genitourinary: reports: hematuria; denies: burning, dysuria, flank pain, frequency, incontinence, penile discharge, penile sore, pain, testicle pain, testicle swelling, urgency, others Neurological: denies: dizziness, fainting, headache, left sided numbness, left sided weakness, numbness, paresthesia, pre-existing deficit, right sided numbness, right sided weakness, seizure, speech problems, tingling, tremors, weakness, others Musculoskeletal: denies: back pain, gout, joint pain, joint swelling, muscle pain, muscle stiffness, neck pain, others Integumetry: denies: bruises, change in color, change in hair/nails, dryness, laceration, lesions, lumps, rash, wounds, others Allergic/Immunocompromised: denies: Difficulty Healing, Frequent Infections, Hives, Itching, others Hematologic/Lymphatic: denies: anemia, blood clots, easy bleeding, easy bruising, swollen glands, others Endocrine: denies: excessive hunger, excessive sweating, excessive thirst, excessive urination, flushing, intolerance to cold, intolerance to heat, unexplained weight gain, unexplained weight loss, others Psychiatric: denies: anxiety, bipolar disorder, depression, hopeless, panic disorder, schizophrenia, sleepless, suicidal, others All Other Systems: Reviewed and Negative (negative unless otherwise stated above or in HPI) Physical Exam Exam Comments Patient appears much older than his chronology. General Appearance: Mild Distress (Patient has some mild discomfort at time of evaluation.), Normal HEENT: Normal ENT Inspection, Pharynx Normal, TMs Normal Neck: Full Range of Motion, Non-Tender, Normal, Normal Inspection Respiratory: Chest Non-Tender, Lungs Clear, No Accessory Muscle Use, No Respiratory Distress, Normal Breath Sounds Cardiovascular: No Edema, No JVD, No Murmur, No Gallop, Normal Peripheral Pulses, Regular Rate/Rhythm Breast Exam: Deferred Gastrointestinal: No Organomegaly, Non Tender, No Pulsatile Mass, Normal Bowel Sounds, Soft Genitalia: Other (Ram catheter in place), Deferred Pelvic: Deferred Rectal: Deferred Extremities: No calf tenderness, Normal inspection, Normal range of motion, Non-tender, No pedal edema Neurologic: Alert, Normal Affect, Normal Mood, No Sensory Deficits Cerebellar Function: Normal Reflexes: Normal Skin: Dry, Normal Color, Warm Lymphatic: No Adenopathy Was a procedure done? Was a procedure done?: No Differential Dx Considerations may include: UTI, viral syndrome, cystitis, ureteral stones, bladder stones, kidney stones X-Ray, Labs, Meds, VS Vital Signs Date Time Temp Pulse Resp B/P (MAP) Pulse Ox O2 Delivery O2 Flow Rate FiO2 11/11/24 18:11 97 13 95 Room Air* 0 21 11/11/24 18:11 97.8 97 13 148/97 (114) 95 97.8 11/11/24 18:00 99 11/11/24 15:50 97.6 105 18 137/83 (101) 94 Lab Test 11/11/24 17:59 11/11/24 16:00 11/11/24 15:59 Range/Units Lactic Acid Level 1.9 2.9 *H 0.4-2.0 mmol/L Urine Color Colorless Yellow Urine Clarity Clear Clear Urine pH 7.0 5.0-9.0 Urine Specific [place] 1.003 1.001-1.035 Urine Protein Negative Negative Urine Ketones Negative Negative Urine Blood 1+ H Negative /uL Urine Nitrite Negative Negative Urine Bilirubin Negative Negative Urine Urobilinogen Normal Negative mg/dL Urine Leukocyte Esterase 1+ Negative /uL Urine RBC <1 0 - 3 /hpf Urine Microscopic WBC 3 0-3 /HPF Urine Squamous Epithelial Cells Few <5 /hpf Urine Bacteria Few H None Seen /hpf Urine Glucose Normal Normal mg/dL White Blood Count 16.8 H 4.4-10.8 10^3/uL Red Blood Count 5.45 4.5-5.90 10^6/uL Hemoglobin 15.9 13.5-17.5 g/dL Hematocrit 49.4 41.0-53.0 % Mean Corpuscular Volume 90.7 80.0-100.0 fL Mean Corpuscular Hemoglobin 29.2 28.0-32.0 pg Mean Corpuscular Hemoglobin Concent 32.2 32.0-36.0 g/dL Red Cell Distribution Width 14.3 11.8-14.3 % Platelet Count 388 140-450 10^3/uL Mean Platelet Volume 7.4 6.9-10.8 fL Neutrophils (%) (Auto) 82.5 H 37.0-80.0 % Lymphocytes (%) (Auto) 8.8 L 10.0-50.0 % Monocytes (%) (Auto) 7.8 0.0-12.0 % Eosinophils (%) (Auto) 0.3 0.0-7.0 % Basophils (%) (Auto) 0.6 0.0-2.0 % Neutrophils # (Auto) 13.8 H 1.6-8.6 10 ^3/uL Lymphocytes # (Auto) 1.5 0.4-5.4 10 ^3/uL Monocytes # (Auto) 1.3 0-1.3 10 ^3/uL Eosinophils # (Auto) 0.1 0-0.8 10 ^3/uL Basophils # (Auto) 0.1 0-0.2 10 ^3/uL Nucleated Red Blood Cells 0.0 % Sodium Level 136 136-145 mmol/L Potassium Level 4.4 3.5-5.1 mmol/L Chloride Level 101 98-107 mmol/L Carbon Dioxide Level 27 20-31 mmol/L Anion Gap 8 5-15 Blood Urea Nitrogen 14 9-23 mg/dL Creatinine 1.15 0.700-1.30 mg/dL Glomerular Filtration Rate Calc 65 >90 mL/min BUN/Creatinine Ratio 12.2 10.0-20.0 Serum Glucose 160 H 74-106 mg/dL Calcium Level 10.5 H 8.7-10.4 mg/dL Total Bilirubin 0.6 0.2-1.0 mg/dL Aspartate Amino Transferase (AST) 19 13-40 U/L Alanine Aminotransferase (ALT) 21 7-40 U/L Alkaline Phosphatase 104 46-116 U/L Troponin I High Sensitivity 4 </=54 ng/L B-Type Natriuretic Peptide 15.50 0-100 pg/mL Total Protein 7.3 5.7-8.2 g/dL Albumin 4.6 3.2-4.8 g/dL Lipase 27 12-53 U/L Current Medications Medications (Trade) Dose Ordered Sig/Dominic Route Start Time Stop Time Status Last Admin Sodium Chloride 1,000 ml @ 1,000 mls/hr Q1H ONCE IV 11/11/24 17:00 11/11/24 17:59 DC 11/11/24 17:28 Levofloxacin (Levaquin Tablet) 750 mg ONCE ONCE PO 11/11/24 17:00 11/11/24 17:01 DC 11/11/24 17:00 X-Ray, Labs, Meds, VS Comment All studies performed the ED were evaluated by me personally. Serum laboratories were remarkable for a mild leukocytosis and a slightly elevated lactic acid. Patient received fluids and his lactic acid level improved. Urinalysis confirmed a urinary tract infection and that may also be the cause of the leukocytosis. Patient was given his 1st dose of antibiotics tonight prior to discharge. Advised patient utilize antibiotics as directed until completion as well as additional medication as needed. Good hydration and healthy nutrition throughout. Time of 1ST Reevaluation: 18:52 Reevaluation 1ST: Improved Consultation: PCP Patient Education/Counseling: Diagnosis, Treatment Family Education/Counseling: Diagnosis, Treatment, No Family Present Departure 1 Departure Time of Disposition: 18:53 Impression: Primary Impression: UTI (urinary tract infection) Disposition: 01 HOME / SELF CARE / HOMELESS Condition: Stable Additional Instructions: Advised patient utilize antibiotics as directed until completion. Patient should practice good hydration and healthy nutrition throughout. e-Prescriptions Sulfamethoxazole W/Trimethopri (Bactrim Ds Tablet) 1 Tab Tb 1 TAB PO BID for 7 Days, #14 TAB Prov: ZULEYMA TELLO PAC 11/11/24 Discharged With: Self, Relative Critical Care Note Critical Care Time?: No Stability Stability form required: No Heart Score Heart Score: Heart Score Response (Comments) Value History N/A 0 EKG N/A 0 Age N/A 0 Risk Factors N/A 0 Troponin N/A 0 Total 0 I personally scribed for ZULEYMA TELLO PAC ([email or web address]) on 11/11/24 at 16:41. Electronically submitted by Ambrose Ramirez ([email or web address]). ZULEYMA TELLO PAC Nov 11, 2024 16:41
[2024-11-11 16:43] LABS: Calcium 10.5 mg/dL (8.7-10.4); Glucose 160 mg/dL (74-106)
[2024-11-11 16:51] LABS: Lactic Acid w/Reflex 2.9 mmol/L (0.4-2.0)
[2024-11-11] MEDS: levoFLOXacin 250 MG TAB PO ONE (17:00)
[2024-11-11] MEDS: SODIUM CHLORIDE 0.9% 1,000 ML IV ONE (17:28)
[2024-11-11 18:11] VITALS: BP 148/97; PULSE 97; RESP 13; TEMP 97.8; O2SAT 95
[2024-11-11] MEDS ORDERED: BACDST PO (18:53)
== END 2024-11-11 20:33 | disposition home or self-care (01) ==
LOC: ER 15:38
DX: N39.0 Urinary tract infection, site not specified (principal); I10 Essential (primary) hypertension; Z79.899 Other long term (current) drug therapy
CPT/HCPCS: 36415; 80053; 81001; 83605; 83690; 83880; 84484; 85025; 96360; 99283; J7030